=== PATIENT | male | born 1955 | race Caucasian/White ===

== ENCOUNTER → 2019-08-01 | Outpatient (CLI) | payer BC ==
--- NOTE | 2019-08-01 23:57 | MR ---
EXAMINATION TYPE: MR lumbar spine wo con DATE OF EXAM: 08/01/2019 COMPARISON: NONE HISTORY: LBP, LLE radic x 2 yrs. Spondylosis with myelopathy per order. TECHNIQUE: Multiplanar, multisequence imaging of the lumbar spine is performed without IV contrast. FINDINGS: Sagittal images of the lumbar spine show vertebral body heights and alignment to appear sat isfactory. Multilevel disc desiccation is seen is multilevel [id number] disc space narrowing mo st prominent L5-S1 level. The conus medullaris is normal in position and signal ending at mid L1 lev el. Scattered small hemangiomas are present. Mild multilevel anterior spurring is seen. Axial images show the T12-L1, L1-L2, and L2-L3 levels to appear within normal limits. Axial images at the L3-L4 level shows mild broad-based posterior disc protrusion mildly effacing the anterior thecal sac. There is mild bilaterally anterior neural foraminal narrowing. Axial images at the L4-L5 level show mild facet degenerative changes bilaterally. There is right para central disc protrusion minimally effacing the anterior thecal sac. There is mild right greater than left bilateral anterior inferior neural foraminal narrowing. Axial images at the L5-S1 levels with [id number] facet degenerative changes bilaterally. There is central disc protrusion minimally effacing the anterior thecal sac. There is mild to moderate left greater than right bilateral inferior neural foraminal narrowing. No suspicious retroperitoneal findings are seen. IMPRESSION: Multilevel degenerative changes in the mid to lower lumbar spine as detailed above. No si gnificant findings are seen to account for patient's left-sided radiculopathy type symptoms however.
== END | disposition home or self-care (01) ==
LOC: RADMRIMAIN 18:34
PROVIDERS: ATTEND Family Medicine
DX: M47.16 Other spondylosis with myelopathy, lumbar region (principal)
CPT/HCPCS: 72148

== ENCOUNTER 2019-10-07 10:48 | Day surgery (SDC) | payer BC ==
[2019-10-02 12:55] VITALS: BMI 34.7
[~2019-10-07 10:48] MED LIST: LACTATED RINGERS 1,000 ML IV SCH
[2019-10-07 11:07] VITALS: TEMP 97.8
[2019-10-07] MEDS ORDERED: LACTATED RINGERS 1,000 ML IV ONE (11:08)
[2019-10-07] MEDS ORDERED: LIDOCAINE 1% 20 ML VIAL (10MG/ML) FOR IV START INTRADERMA ONE (11:09)
[2019-10-07] MEDS ORDERED: PROPOFOL 10 MG/ML 20 ML VIAL IV ONE (12:23)
[2019-10-07] MEDS ORDERED: LIDOCAINE 1% INJ 10MG/ML (20 ML MDV) ONE (12:23)
[2019-10-07 13:06] VITALS: RESP 16
--- NOTE | 2019-10-07 13:07 | P.PCN ---
Date of Procedure: 10/07/19 Description of Procedure: BRIEF HISTORY: Patient is a 64-year-old pleasant male scheduled for an elective colonoscopy as a part of screening for malignant neoplasm of the colon. Patient reports family history of colon cancer in his father in his 60s. Does report prior colonoscopies, the last was approximately 5 years ago and has had polypectomy in the past. Denies any change in bowel habits, blood per rectum or abdominal pain. PROCEDURE PERFORMED: Colonoscopy with polypectomy. PREOPERATIVE DIAGNOSIS: Screening for malignant neoplasm of the colon, family history of colon cancer, personal history of colon polyps, last colonoscopy 5 years ago. ESTIMATED BLOOD LOSS: Minimal. IV sedation per Anesthesia. PROCEDURE: After informed consent was obtained, the patient, was brought into the endoscopy unit. IV sedation was administered by Anesthesia under continuous monitoring. Digital rectal examination was normal. Initially the Olympus CF-190 flexible video colonoscope was then inserted in the rectum, gradually advanced into the cecum without any difficulty. Careful examination was performed as the scope was gradually being withdrawn. Ileocecal valve and the appendiceal orifice were visualized and appeared normal. Prep was excellent. Mucosa of the cecum, ascending colon, transverse colon, descending colon, sigmoid colon, and rectum appeared normal. Mild scattered diverticula in the left colon. Small 3 mm ascending colon polyp removed with cold forcep polypectomy. Diminutive 1 mm hepatic flexure polyp removed with cold forcep polypectomy. Pedunculated 4 mm sigmoid polyp removed with cold snare polypectomy. Diminutive 2 mm sigmoid polyp removed with cold forcep polypectomy. Diminutive 2 mm rectal polyp removed with cold forcep polypectomy. Retroflexion was performed in the rectum and no lesions were seen. The patient tolerated the procedure well. IMPRESSION: 5 polyps ranging from 1 mm in size to 4 mm in size removed from the colon (please see body of report for location, size and technique of polyp removal). Mild left-sided diverticulosis. RECOMMENDATIONS: Findings of this examination were discussed with the patient endoscopic family. Okay to resume diet. Okay to resume medications. Anticipate repeat colonoscopy in 3 years pending pathology of polypectomies.
[2019-10-07 13:23] VITALS: BP 126/79; PULSE 61
== END 2019-10-07 13:42 | disposition home or self-care (01) ==
LOC: ORWHC2ENDO 10:48
PROVIDERS: ATTEND Internal Medicine
DX: Z12.11 Encounter for screening for malignant neoplasm of colon (principal); D12.2 Benign neoplasm of ascending colon; K63.5 Polyp of colon; D12.5 Benign neoplasm of sigmoid colon; D12.8 Benign neoplasm of rectum; K57.30 Diverticulosis of large intestine without perforation or abscess without bleeding; J45.909 Unspecified asthma, uncomplicated; M19.90 Unspecified osteoarthritis, unspecified site; E66.9 Obesity, unspecified; Z80.0 Family history of malignant neoplasm of digestive organs; Z87.891 Personal history of nicotine dependence; Z79.1 Long term (current) use of non-steroidal anti-inflammatories (NSAID); Z79.899 Other long term (current) drug therapy; Z98.52 Vasectomy status; Z86.010 Personal history of colon polyps; Z79.51 Long term (current) use of inhaled steroids; Z98.890 Other specified postprocedural states; Z68.35 Body mass index [BMI] 35.0-35.9, adult
CPT/HCPCS: 88305; 45380; 45385; J2001; J2704

== ENCOUNTER 2025-01-23 19:24 | Inpatient (IN) | payer BC, MEDICARE ==
[2025-01-23] MEDS ORDERED: NALOXONE 0.4 MG/ML 1 ML VIAL IV PRN (19:38)
--- NOTE | 2025-01-23 19:39 | ED ---
General Adult HPI - General Stated complaint: CVA-Memory loss Time Seen by Provider: 01/23/25 19:26 Source: EMS Mode of arrival: EMS Limitations: no limitations - History of Present Illness Initial comments: Dictation was produced using [employer] dictation software. please excuse any grammatical, word or spelling errors. Chief Complaint: 69-year-old male transferred from outside hospital for neurology consultation History of Present Illness: Patient 69-year-old male he was at outside [facility]. He was evaluated for memory deficits, confusion and bizarre behavior. He patient denies any symptoms currently. He was seen and evaluated there and extensive workup. He was sent here because he had a CT that showed subacute versus chronic infarct. Patient was given aspirin and transferred here. Patient denies any symptoms at this time. According to transfer documentation patient has been having cognitive issues recently. The ROS documented in this emergency department record has been reviewed and confirmed by me. Those systems with pertinent positive or negative responses have been documented in the HPI. All other systems are other negative and/or noncontributory. - Related Data Home Medications Medication Instructions Recorded Confirmed Albuterol Inhaler [Ventolin Hfa 1 - 2 puff INHALATION RT-Q6H PRN 10/02/19 10/02/19 Inhaler] Beclomethasone Dip 80 Mcg/Puff 2 puff INHALATION QAM 10/02/19 10/02/19 [Qvar 80 mcg] Furosemide (Unknown Dose) 1 tab PO DAILY PRN 10/02/19 10/02/19 Naproxen Sodium [Aleve] 220 mg PO BID 10/02/19 10/02/19 Allergies Allergy/AdvReac Type Severity Reaction Status Date / Time No Known Allergies Allergy Verified 10/02/19 12:59 Review of Systems ROS Statement: Those systems with pertinent positive or pertinent negative responses have been documented in the HPI. ROS Other: All systems not noted in ROS Statement are negative. Past Medical History Past Medical History: Asthma, Osteoarthritis (OA) Additional Past Medical History / Comment(s): 3 herniated discs in lower back. History of Any Multi-Drug Resistant Organisms: None Reported Past Surgical History: Back Surgery Additional Past Surgical History / Comment(s): Bilateral cataract surgery, vasectomy. Past Anesthesia/Blood Transfusion Reactions: No Reported Reaction Past Psychological History: No Psychological Hx Reported Past Alcohol Use History: Occasional Past Drug Use History: None Reported - Past Family History Mother Family Medical History: Cancer Additional Family Medical History / Comment(s): Uterine cancer. Father Family Medical History: Cancer Additional Family Medical History / Comment(s): Prostate and colon cancer. General Exam - General Exam Comments Initial Comments: PHYSICAL EXAM: General Impression: Alert and oriented x3, not in acute distress HEENT: Normocephalic atraumatic, extra-ocular movements intact, pupils equal and reactive to light bilaterally, mucous membranes moist. Cardiovascular: Heart regular rate and rhythm Chest: Able to complete full sentences, no retractions, no tachypnea Abdomen: abdomen soft, non-tender, non-distended, no organomegaly Musculoskeletal: Pulses present and equal in all extremities, no peripheral edema Motor: no focal deficits noted Neurological: CN II-XII grossly intact, no focal motor or sensory deficits noted Skin: Intact with no visualized rashes Psych: Normal affect and mood Limitations: no limitations Course Vital Signs 01/23/25 19:27 Temperature 98.1 F Pulse Rate 79 Respiratory 18 Rate Blood Pressure 157/83 O2 Sat by Pulse 94 L Oximetry Medical Decision Making - Medical Decision Making Was pt. sent in by a medical professional or institution (, PA, STOCK PARTS FABRICATOR, urgent care, hospital, or retirement...) When possible be specific @ -Outside ER Did you speak to anyone other than the patient for history (EMS, parent, family, police, friend...)? What history was obtained from this source @ -Dr. Verdin from [facility] Did you review nursing and triage notes (agree or disagree)? Why? @ -I reviewed and agree with nursing and triage notes Were old charts reviewed (outside hosp., previous admission, EMS record, old EKG, old radiological studies, urgent care reports/EKG's, retirement records)? Report findings @ -No old charts were reviewed Differential Diagnosis (chest pain, altered mental status, abdominal pain women, abdominal pain men, vaginal bleeding, musculoskeletal, weakness, fever, dyspnea, syncope, headache, dizziness, GI bleed, back pain, seizure, CVA, palpatations, mental health)? @ - Differential CVA: Ischemic stroke, hemorrhagic stroke, brain tumor, atypical migraine, Wernicke's encephalopathy, seizure, multiple sclerosis, meningitis, encephalitis, hypoglycemia, Guillain-Butt, electrolytes disturbance, myasthenia gravis.... This is not meant to be an all-inclusive list EKG interpreted by me (3pts min.). @ -None done X-rays interpreted by me (1pt min.). @ -None done CT interpreted by me (1pt min.). @ -None done U/S interpreted by me (1pt. min.). @ -None done What testing was considered but not performed or refused? (CT, X-rays, U/S, labs)? Why? @ -None What meds were considered but not given or refused? Why? @ -None Was smoking cessation discussed for >3mins.? @ -No Were there social determinants of health that impacted care today? How? (Homelessness, low income, unemployed, alcoholism, drug addiction, transportation, low edu. Level, literacy, decrease access to med. care, fci, rehab)? @ -No Was there de-escalation of care discussed even if they declined (Discuss DNR or withdrawal of care, Hospice)? DNR status @ -No What co-morbidities impacted this encounter? (DM, HTN, Smoking, COPD, CAD, Cancer, CVA, ARF, Chemo, Hep., AIDS, mental health diagnosis, sleep apnea, morbid obesity)? @ -None Was patient admitted / discharged? Hospital course, mention meds given and route, prescriptions, significant lab abnormalities, going to OR and other pertinent info. @ -69-year-old male transfer of outside hospital for neurology consultation. CT showed subacute versus chronic stroke. Neurologic exam at the bedside is unremarkable. NIH score is 0. Patient had received aspirin. Will be admitted to observation with neurology on consult. Case discussed with hospitalist for admission Did you discuss the management of the patient with other professionals (professionals i.e. , PA, STOCK PARTS FABRICATOR, lab, RT, psych nurse, psych social worker, immigration lawyer, te acher, eeo officer, block and case maker)? Give summary @ -No Was critical care preformed (if so, how long)? @ -No Undiagnosed new problem with uncertain prognosis? @ -No Drug Therapy requiring intensive monitoring for toxicity (Heparin, Nitro, Insulin, Cardizem)? @ -No Were any procedures done? @ -No Diagnosis/symptom? Acute, or Chronic, or Acute on Chronic? Uncomplicated (without systemic symptoms) or Complicated (systemic symptoms)? @ -Abnormal CT Side effects of treatment? @ -No Exacerbation, Progression, or Severe Exacerbation? @ -No Poses a threat to life or bodily function? How? (Chest pain, USA, PR, pneumonia, PE, COPD, DKA, ARF, appy, cholecystitis, CVA, Diverticulitis, Homicidal, Suicidal, threat to staff... and all critical care pts) @ -yes Disposition Clinical Impression: AMS (altered mental status) Disposition: ADMITTED IP TO THIS [facility] Condition: Fair Referrals: Nonstaff,Physician [Primary Care Provider] - 1-2 days Decision Time: 19:38
[2025-01-23] MEDS: SODIUM CHLORIDE 0.9% 1,000 ML IV SCH (20:58)
[2025-01-23] MEDS: GABAPENTIN 300 MG CAP PO SCH (20:59)
--- NOTE | 2025-01-23 22:22 | P.HPIM ---
History of Present Illness H&P Date: 01/23/25 History of present illness; Patient 69-year-old male transfer of [facility] for neurology consu ltation. Patient states that morning he woke up with confusion, he was unable to locate household items and had difficulty finding words. He was well before going to bed the previous evening. He continues to feel some confusion at this time. He had no reported facial droop, slurred speech or upper or lower extremity weakness, dizziness. He continued to have symptoms this morning and proceeded to the hospital. There he received aspirin. He was then transferred here for further consultation. At this time patient reports absence of fever, chills, chest pain, palpitations, diaphoresis, dyspnea, cough, abdominal pain, nausea, vomiting, constipation, diarrhea, weakness, myalgia, dizziness, headache, and dysuria. Spoke with the ER physician, patient admission was accepted by internal medicine service for treatment. REVIEW OF SYSTEMS: Pertinent positives and negatives noted in HPI. PHYSICAL EXAMINATION: Vitals reviewed GENERAL: Resting comfortably in bed. Obese. EYES: PERRL, no scleral injection or icterus. No vision loss HENT: Normocephalic, atraumatic, hearing grossly intact, moist mucous membranes NECK: No tracheal deviation, full range of motion. CARDIOVASCULAR: S1 and S2 present. No murmurs, rubs, or gallops. PULMONARY: Chest is clear to auscultation, no wheezing, rhonchi, or crackles. ABDOMEN: Soft, nontender, nondistended. No palpable organomegaly. MUSCULOSKELETAL: No apparent joint swelling and deformities. EXTREMITIES: No apparent cyanosis, clubbing. No pedal edema. NEUROLOGICAL: Alert and oriented x 3. CN nerves II through XII no noted defic its. 5 out of 5 strength in upper and lower extremities. SKIN: No apparent rashes. ER FINDINGS:Patient transferred from outside facility Labs: Platelets 147, glucose 160 otherwise CBC and CMP unremarkable EKG normal sinus rhythm, rate 84, no ST T depressions or elevations, no T wave abnormalities noted Chest x-ray from outside facility with no acute cardiopulmonary process CT brain left-sided parietal acutesubacute changes Assessment and Plan: In summary, patient 69-year-old male transfer of [facility] for neurology consultation. # Altered mental status possibly due to TIA CT brain left-sided parietal acutesubacute changes HbA1c, Lipid panel ordered - Start Aspirin 81 mg qd, clopedogrel 75 mg qd and lipitor 40 mg qd for 21 days on d/c MRI brain without contrast ordered - Echocardiogram with bubble study ordered - Fall precautions - consult PT and OT for evaluation Neurology consulted #Mild thrombocytopenia Platelets 147 Monitor CBC #Hyperglycemia glucose 160 HbA1c as above Monitor CMP Chronic Medical Conditions #Chronic back pain Resume home medications DVT ppx: Subq Lovenox 40 meq daily Code status: Full code F: IV Normal saline 20 mL/hr E: Replete as needed N: Heart healthy diet A: Ambulatory Anticipated discharge place: Home Anticipated discharge time: 1 to 2 days Dictation was produced using [employer] dictation software. Please excuse any grammatical, word or spelling errors. I have seen and evaluated the patient today. I Discussed the case with the resident and agree with the resident's findings I edited the assessment and plan as necessary as documented in the resident's note. Past Medical History Past Medical History: Asthma, Osteoarthritis (OA) Additional Past Medical History / Comment(s): 3 herniated discs in lower back. History of Any Multi-Drug Resistant Organisms: None Reported Past Surgical History: Back Surgery Additional Past Surgical History / Comment(s): Bilateral cataract surgery, va sectomy. Past Anesthesia/Blood Transfusion Reactions: No Reported Reaction Past Psychological History: No Psychological Hx Reported Past Alcohol Use History: Occasional Past Drug Use History: None Reported - Past Family History Mother Family Medical History: Cancer Additional Family Medical History / Comment(s): Uterine cancer. Father Family Medical History: Cancer Additional Family Medical History / Comment(s): Prostate and colon cancer. Medications and Allergies Home Medications Medication Instructions Recorded Confirmed Type Gabapentin [Neurontin] 100 mg PO BID@0800,1500 01/23/25 01/23/25 History Gabapentin [Neurontin] 300 mg PO HS 01/23/25 01/23/25 History HYDROcodone/APAP 10-325MG [[place] 1 tab PO TID 01/23/25 01/23/25 History 10-325] Sildenafil Citrate [Viagra] 100 mg PO DAILY PRN 01/23/25 01/23/25 History Allergies Allergy/AdvReac Type Severity Reaction Status Date / Time No Known Allergies Allergy Verified 01/23/25 19:41 Physical Exam Vitals: Vital Signs Temp Pulse Resp BP Pulse Ox 01/23/25 19:27 98.1 F 79 18 157/83 94 L Intake and Output 01/23/25 01/23/25 01/23/25 06:59 14:59 22:59 Other: Weight 113.398 kg Results CBC & Chem 7: 01/23/25 22:25 01/23/25 22:25
[2025-01-23] MEDS: ATORVASTATIN 40 MG TAB PO SCH (22:33)
[2025-01-23] MEDS: HYDROcodone/APAP 10-325MG 1 EACH TAB PO SCH (22:34)
[2025-01-23 22:55] LABS: Basophils % (A) 0 %; Eosinophils # (A) 0.1 k/uL (0-0.7); Eosinophils % (A) 1 %; HCT 44.6 % (39.0-53.0); HGB 14.7 gm/dL (13.0-17.5); Lymphocytes # (A) 2.8 k/uL (1.0-4.8); Lymphocytes % (A) 30 %; MCH 30.3 pg (25.0-35.0); MCHC 32.9 g/dL (31.0-37.0); Mean Platelet Volume 9.8; Monocytes # (A) 0.5 k/uL (0-1.0); Monocytes % (A) 6 %; Neutrophils # (A) 5.8 k/uL (1.3-7.7); Neutrophils % (A) 62 %; Platelet Count 147 k/uL (150-450); RBC 4.85 m/uL (4.30-5.90); WBC 9.3 k/uL (3.8-10.6)
[2025-01-23 23:08] LABS: ALT 35 U/L (4-49); AST 26 U/L (17-59); African American GFR (CKD) >90 (>60 ml/min/1.73 sqM); Alkaline Phosphatase 73 U/L (38-126); Anion Gap 10 mmol/L; Blood Urea Nitrogen 15 mg/dL (9-20); Calcium 9.3 mg/dL (8.4-10.2); Carbon Dioxide 24 mmol/L (22-30); Chloride 103 mmol/L (98-107); Glucose 160 mg/dL (74-99); Non-African American GFR(CKD) >90 (>60 ml/min/1.73 sqM); Potassium 4.1 mmol/L (3.5-5.1); Sodium 137 mmol/L (137-145); Total Protein 6.8 g/dL (6.3-8.2)
[2025-01-24 07:47] LABS: Basophils % (A) 0 %; Eosinophils # (A) 0.1 k/uL (0-0.7); Eosinophils % (A) 1 %; HCT 47.4 % (39.0-53.0); HGB 15.1 gm/dL (13.0-17.5); Lymphocytes # (A) 2.6 k/uL (1.0-4.8); Lymphocytes % (A) 30 %; MCHC 31.9 g/dL (31.0-37.0); Mean Platelet Volume 9.6; Monocytes # (A) 0.5 k/uL (0-1.0); Monocytes % (A) 6 %; Neutrophils # (A) 5.3 k/uL (1.3-7.7); Neutrophils % (A) 61 %; Platelet Count 168 k/uL (150-450); RBC 5.04 m/uL (4.30-5.90); RDW 12.7 % (11.5-15.5); WBC 8.7 k/uL (3.8-10.6)
[2025-01-24] MEDS: GABAPENTIN 100 MG CAP PO SCH (07:53)
[2025-01-24 08:01] LABS: Chloride 103 mmol/L (98-107)
[2025-01-24 08:03] LABS: ALT 37 U/L (4-49); AST 29 U/L (17-59); African American GFR (CKD) >90 (>60 ml/min/1.73 sqM); Albumin 4.3 g/dL (3.5-5.0); Alkaline Phosphatase 78 U/L (38-126); Anion Gap 9 mmol/L; Blood Urea Nitrogen 18 mg/dL (9-20); Calcium 9.5 mg/dL (8.4-10.2); Carbon Dioxide 25 mmol/L (22-30); Glucose 151 mg/dL (74-99); Non-African American GFR(CKD) 89 (>60 ml/min/1.73 sqM); Potassium 4.2 mmol/L (3.5-5.1); Sodium 137 mmol/L (137-145); Total Bilirubin 1.2 mg/dL (0.2-1.3); Total Protein 7.2 g/dL (6.3-8.2)
[2025-01-24] MEDS: CLOPIDOGREL 75 MG TAB PO SCH (09:02)
[2025-01-24] MEDS: ENOXAPARIN 40 MG/0.4 ML SYRINGE SQ SCH (09:02)
[2025-01-24] MEDS: ASPIRIN 81 MG PO SCH (09:02)
--- NOTE | 2025-01-24 09:12 | US ---
EXAMINATION TYPE: US carotid duplex BILAT DATE OF EXAM: 01/24/2025 COMPARISON: none CLINICAL INDICATION: Male, 69 years old with history of CVA; memory loss/ confusion Additional History: .... TECHNIQUE: Grayscale, color Doppler and spectral Doppler evaluation of the bilateral carotid systems and vertebral arteries. Indirect Doppler criteria was utilized. FINDINGS: EXAM MEASUREMENTS: RIGHT: Peak Systolic Velocity (PSV) cm/sec ----- Right CCA: 97.4 ----- Right ICA: 87.9 ----- Right ECA: 135 ICA/CCA ratio: 1.1 RIGHT: End Diastole cm/sec ----- Right CCA: 22.5 ----- Right ICA: 29.6 ----- Right ECA: 12.7 LEFT: Peak Systolic Velocity (PSV) cm/sec ----- Left CCA: 77.7 ----- Left ICA: 81.8 ----- Left ECA: 105 ICA/CCA ratio: 0.9 LEFT: End Diastole cm/sec ----- Left CCA: 20.1 ----- Left ICA: 25.8 ----- Left ECA: 9.4 VERTEBRALS (direction of flow): Right Vertebral: Antegrade Left Vertebral: Antegrade Rhythm: Normal HADOOP APPLICATION DEVELOPER NOTES: intima-media thickening bilaterally, no stenosis or elevated velocities Color Doppler imaging shows patency with blood flow throughout the carotid artery. Spectral waveforms are within normal limits. IMPRESSION: 1. Color and grayscale images reveal mild intimal thickening in the carotid bifurcations. 2. No significant stenosis based on color and grayscale imaging and peak systolic velocities and rati os. Criteria for Assigning % of Stenosis / Diameter reduction (Estimation based on the indirect measurements of the internal carotid artery velocities (ICA PSV). 1. Normal (no stenosis)=ICA PSV < 125 cm/s: ratio < 2.0: ICA EDV<40 cm/s. 2. Less than 50% stenosis=ICA PSV < 125 cm/s: ratio < 2.0: ICA EDV<40 cm/s. 3. 50 to 69% stenosis=ICA PSV of 125 to 230 cm/s: ration 2.0 ? 4.0: ICA EDV 40-100 cm/s. 4. Greater than 70% stenosis to near occlusion= ICA PSV > 230 cm/s: ratio > 4.0: ICA EDV > 100 cm/s. 5. Near occlusion= ICA PSV velocities may be low or undetectable: variable ratio and ICA EDV. 6. Total occlusion=unable to detect flow. [facility], Workstation: PJ, 01/24/2025 9:10 AM
--- NOTE | 2025-01-24 12:02 | P.CNNES ---
History of Present Illness Consult date: 01/24/25 Requesting physician: Marcos Ardon Reason for Consult: ams History of Present Illness: This is a 69-year-old gentleman who was transferred from outside facility for escalation of care for concern for possible stroke. Patient is at bedside who helps with some of the history. According to the patient's since this past it seems that he has been confused more than normal. had difficulty describing the episode but patient felt he had some speech difficulty and he knew what he wanted to say but was coming out wrong. The felt he was also confused. He did not have any focal weakness. No visual disturbance, no slurring of the speech, no difficulty swallowing. He denies any history of stroke. He is the third platelet. Patient presented to outside hospital and [facility] in [place], [place]. Patient denies any history of seizures. He states he just has chronic low back pain and he is on gabapentin and Sutton's other than that he is not on any other medication. Denies any alcohol use, any illicit drug use. Regarding his memory issues in the past thinks maybe in the last 1 year is repeating himself but he believes places things. Patient states he misplaces things because he does not care about them. Patient has intact remote memory and memory of his names of his kids as well as grandkids. No difficulty feeding or bathing himself. Feels he is drastically better today compared to couple days ago. CT of the head and there is concern for for possible stroke. stated that they could not do MRI at the outside hospital so they wanted him to come to our facility for further evaluation Upon reviewing the outside hospital medical record: It seems that he presented to the outside hospital on 01/21/2025 and in that note stated that the patient woke up with increased memory loss and could not remember how to do things like make coffee he could not find his phone even though was right in front of him who does state memory problems at baseline. At the outside facility his NIH stroke scale was 0. CT of the head showed age- indeterminate infarct in the left parietal lobe, subacute to chronic. Review of Systems As per HPI. Past Medical History Past Medical History: Asthma, Osteoarthritis (OA) Additional Past Medical History / Comment(s): 3 herniated discs in lower back. History of Any Multi-Drug Resistant Organisms: None Reported Past Surgical History: Back Surgery Additional Past Surgical History / Comment(s): Bilateral cataract surgery, vasectomy. Past Anesthesia/Blood Transfusion Reactions: No Reported Reaction Past Psychological History: No Psychological Hx Reported Past Alcohol Use History: Occasional Past Drug Use History: None Reported - Past Family History Mother Family Medical History: Cancer Additional Family Medical History / Comment(s): Uterine cancer. Father Family Medical History: Cancer Additional Family Medical History / Comment(s): Prostate and colon cancer. Medications and Allergies Home Medications Medication Instructions Recorded Confirmed Type Gabapentin [Neurontin] 100 mg PO BID@0800,1500 01/23/25 01/23/25 History Gabapentin [Neurontin] 300 mg PO HS 01/23/25 01/23/25 History HYDROcodone/APAP 10-325MG [Sutton 1 tab PO TID 01/23/25 01/23/25 History 10-325] Sildenafil Citrate [Viagra] 100 mg PO DAILY PRN 01/23/25 01/23/25 History Allergies Allergy/AdvReac Type Severity Reaction Status Date / Time No Known Allergies Allergy Verified 01/23/25 19:41 Physical Examination - Vital Signs Vital Signs: Vital Signs Temp Pulse Resp BP Pulse Ox 01/24/25 07:48 97.5 F L 70 18 137/67 94 L 01/24/25 06:27 75 16 117/61 93 L 01/24/25 04:38 64 18 113/61 94 L 01/24/25 00:19 80 18 124/62 93 L 01/23/25 19:27 98.1 F 79 18 157/83 94 L Intake and Output 01/23/25 01/24/25 01/24/25 22:59 06:59 14:59 Other: Weight 113.398 kg GENERAL: The patient is lying in bed and is not in acute distress. NEUROLOGICAL: Higher mental function: The patient is awake, alert, oriented to self, place and time. Patient is following commands. No aphasia and no neglect. Cranial nerves: The pupils are round, equal and reactive to light and accommodation. Visual velez are full to confrontation throughout. Extraocular movement is intact no nystagmus is noted. Facial sensation is normal to touch throughout. The facial strength is left nasolabialt flattening (per is chronic). Hearing is mildly decreased bilaterally to hand rub. Tongue is midline and moved [id number] without any difficulty. No dysarthria is noted. Shoulder shrug is normal bilaterally. Motor: The strength is 5 over 5 throughout. Normal tone and bulk. Cerebellum: Normal finger to nose heel to garcia bilaterally. Sensation: Sensation is normal to touch throughout. Reflexes (right/left): 2+ throughout. Plantars are downgoing bilaterally. Results - Laboratory Findings CBC and BMP: 01/24/25 07:16 01/24/25 07:16 Abnormal Lab Findings: Abnormal Labs 01/23/25 01/23/25 01/24/25 22:25 22:25 07:16 Plt Count 147 L Glucose 160 H 151 H Assessment and Plan Assessment: This is a 69-year-old gentleman who was transferred from outside hospital because of altered mental status, confusion, word finding difficulty and a CT of the head showed age-indeterminate infarct in the left parietal lobe, subacute to chronic and requesting escalation of care. Transient expressive aphasia with confusion: Rule out any subacute ischemic stro ke or TIA. CT of the head at the outside hospital showed indeterminate infarct over the left parietal subacute chronic--this is resolved. No IV thrombolytic since symptoms resolve and the risk outweigh the benefit Underlying history of memory loss per the for over the last 1 year and it seems mild Chronic low back pain Remote history of tobacco use Plan: MRI the brain and 2D echo are ordered and pending. Patient was started on aspirin 81 mg, Plavix 75 mg the primary team. Prior to this the patient was not on any antiplatelet. Patient is on Lipitor 40 mg nigh tly. L Ordered TSH. ipid panel, hemoglobin A1c are ordered by the primary team and pending. PT OT are consulted Continue neurochecks Cardiac monitoring Will defer the rest of the medical management to primary team Demented neuropsych evaluation as an outpatient for detailed memory testing as an outpatient. For DVT prophylaxis patient is on Lovenox The plan discussed with the patient and his is at bedside Thank you for the consultation Time with Patient: Greater than 30
--- NOTE | 2025-01-24 12:26 | P.PN ---
Subjective Progress Note Date: 01/24/25 Patient 69-year-old male transfer of [facility] for neurology consultation. Patient states that morning he woke up with confusion, he was unable to locate household items and had difficulty finding words. He was well before going to bed the previous evening. He continues to feel some confusion at this time. He had no reported facial droop, slurred speech or upper or lower extremity weakness, dizziness. He continued to have symptoms this morning and proceeded to the hospital. There he received aspirin. He was then transferred here for further consultation. At this time patient reports absence of fever, chills, chest pain, palpitations, diaphoresis, dyspnea, cough, abdominal pain, nausea, vomiting, constipation, diarrhea, weakness, myalgia, dizziness, headache, and dysuria. 01/24/2025 patient seen and examined at bedside. No acute events overnight. Labs today showed WBC 8.7, hemoglobin 15.1, platelet count 1 68,000, sodium 137, potassium 4.2, bicarb 25, creatinine 0.89, glucose 151, calcium 9.5, total bilirubin 1.2, AST 29, ALT 37, alk phos 78. Carotid Doppler study showed mild intimal thickening in the carotid bifurcations, no significant stenosis seen. REVIEW OF SYSTEMS: Pertinent positives and negatives noted in HPI. PHYSICAL EXAMINATION: Vitals reviewed GENERAL: Resting comfortably in bed. Obese. EYES: PERRL, no scleral injection or icterus. No vision loss HENT: Normocephalic, atraumatic, hearing grossly intact, moist mucous membranes NECK: No tracheal deviation, full range of motion. CARDIOVASCULAR: S1 and S2 present. No murmurs, rubs, or gallops. PULMONARY: Chest is clear to auscultation, no wheezing, rhonchi, or crackles. ABDOMEN: Soft, nontender, nondistended. No palpable organomegaly. MUSCULOSKELETAL: No apparent joint swelling and deformities. EXTREMITIES: No apparent cyanosis, clubbing. No pedal edema. NEUROLOGICAL: Alert and oriented x 3. CN nerves II through XII no noted deficits. 5 out of 5 strength in upper and lower extremities. SKIN: No apparent rashes. ER FINDINGS:Patient transferred from outside facility Labs: Platelets 147, glucose 160 otherwise CBC and CMP unremarkable EKG normal sinus rhythm, rate 84, no ST T depressions or elevations, no T wave abnormalities noted Chest x-ray from outside facility with no acute cardiopulmonary process CT brain left-sided parietal acutesubacute changes Assessment and Plan: In summary, patient 69-year-old male transfer of [facility] for neurology consultation. #. Acute encephalopathy possibly due to TIA CT brain left-sided parietal acutesubacute changes -Carotid Doppler study showed mild intimal thickening in the carotid bifurcations, no significant stenosis seen. -Start Aspirin 81 mg qd, clopedogrel 75 mg qd and lipitor 40 mg qd for 21 days on d/c MRI brain without contrast ordered - Echocardiogram with bubble study ordered HbA1c, Lipid panel ordered -Neurochecks -Fall precautions - consult PT and OT for evaluation Neurology consulted. TSH ordered and pending #. Thrombocytopenia, resolved Platelets 147 -> 168 #. Hyperglycemia glucose 160 -> 151 HbA1c as above Monitor CMP Chronic Medical Conditions #Chronic back pain Resume home [place] and gabapentin DVT ppx: Subq Lovenox 40 meq daily Code status: Full code F: IV Normal saline 20 mL/hr E: Replete as needed N: Heart healthy diet A: Ambulatory I saw and evaluated the patient during the roman and critical portions of this encounter, and discussed the case in detail with the resident author of this note, I agree with the Assessment and Plan, and my changes, if any, are highlighted in blue. Objective - Vital Signs Vital signs: Vital Signs Temp 98.1 F 01/23/25 19:27 Pulse 75 01/24/25 06:27 Resp 16 01/24/25 06:27 BP 117/61 01/24/25 06:27 Pulse Ox 93 L 01/24/25 06:27 FiO2 Intake & Output 01/23/25 01/24/25 01/24/25 18:59 06:59 18:59 Weight 113.398 kg - Labs CBC & Chem 7: 01/24/25 07:16 01/24/25 07:16 Labs: Abnormal Lab Results - Last 24 Hours (Table) 01/23/25 01/23/25 Range/Units 22:25 22:25 Plt Count 147 L (150-450) k/uL Glucose 160 H (74-99) mg/dL
[2025-01-24 13:35] LABS: Chol/HDL Ratio 3.81 Ratio; LDL Cholesterol,Calculated 129.2 mg/dL (0.0-131.0)
[2025-01-24] MEDS: GABAPENTIN 300 MG CAP PO SCH (22:02)
--- NOTE | 2025-01-25 12:47 | P.PN ---
Subjective Progress Note Date: 01/25/25 No new complaints today. Seen ambulating in the hallway with good gait and no issues. Per pt confusion is improving. Gen: In NAD, non-toxic HEENT: normocephalic, atraumatic, hearing acuity is intant, mucous membranes moist CVS: perfusing all extremities well, no pitting edema, Respiratory: symmetric chest expansion, no accessory muscle use, GI: soft, NTTP, ND, : no suprapubic tenderness, no CVA tenderness MSK/Derm: no rashes, cyanosis Neuro: CN II-XII intact, no motor weakness, Psych: cooperative, euthymic mood, judgment and insight is intact Hospital course: Patient 69-year-old male transfer of [facility] for neurology consultation. ER FINDINGS:Patient transferred from outside facility Labs: Platelets 147, glucose 160 otherwise CBC and CMP unremarkable EKG normal sinus rhythm, rate 84, no ST T depressions or elevations, no T wave abnormalities noted Chest x-ray from outside facility with no acute cardiopulmonary process CT brain left-sided parietal acutesubacute changes Patient was admitted for stroke workup. Carotid Doppler study showed mild intimal thickening in the carotid bifurcations, no significant stenosis seen. Assessment and Plan: In summary, patient 69-year-old male transfer of [facility] for neurology consultation. #. Acute encephalopathy possibly due to TIA - Continue aspirin 81 mg qd, clopidogrel 75 mg qd for 21 days on DC; lipitor 40 mg qd MRI brain without contrast ordered - Echocardiogram with bubble study ordered HbA1c, Lipid panel ordered - Neurochecks - Fall precautions - consult PT and OT for evaluation Neurology consulted. TSH ordered and pending #. Thrombocytopenia, resolved Platelets 147 -> 168 #. Hyperglycemia glucose 160 -> 151 HbA1c as above Monitor CMP Chronic Medical Conditions #Chronic back pain Resume home [place] and gabapentin DVT ppx: Subq Lovenox 40 meq daily Code status: Full code F: IV Normal saline 20 mL/hr E: Replete as needed N: Heart healthy diet A: Ambulatory Objective - Vital Signs Vital signs: Vital Signs Temp 97.3 F L 01/25/25 08:35 Pulse 76 01/25/25 08:35 Resp 18 01/25/25 08:35 BP 133/70 01/25/25 08:35 Pulse Ox 96 01/25/25 08:35 FiO2 - Labs CBC & Chem 7: 01/24/25 07:16 01/24/25 07:16 Labs: Abnormal Lab Results - Last 24 Hours (Table) 01/24/25 01/24/25 Range/Units 07:16 07:16 Hemoglobin A1c 6.8 H (<=6.0) % Cholesterol 209.00 H (0.00-200.00) mg/dL
--- NOTE | 2025-01-25 13:58 | P.PN ---
Subjective Progress Note Date: 01/25/25 I am following up with the patient and he is accompanied with his daughter feels his speech memory is better today compared to yesterday. No new neurological issues. Objective - Vital Signs Vital signs: Vital Signs Temp 97.3 F L 01/25/25 08:35 Pulse 91 01/25/25 12:54 Resp 18 01/25/25 12:54 BP 143/67 01/25/25 12:54 Pulse Ox 95 01/25/25 12:54 FiO2 - Exam GENERAL: The patient is lying in bed and is not in acute distress. NEUROLOGICAL: Higher mental function: The patient is awake, alert, oriented to self, place and time. Patient is following commands. No aphasia and no neglect. Cranial nerves: The pupils are round, equal and reactive to light and accommodation. Visual velez are full to confrontation throughout. Extraocular movement is intact no nystagmus is noted. Facial sensation is normal to touch throughout. The facial strength is left nasolabialt flattening (per is chronic). Hearing is mildly decreased bilaterally to hand rub. Tongue is midline and moved [id number] without any difficulty. No dysarthria is noted. Shoulder shrug is normal bilaterally. Motor: The strength is 5 over 5 throughout. Normal tone and bulk. Cerebellum: Normal finger to nose heel to garcia bilaterally. Sensation: Sensation is normal to touch throughout. Reflexes (right/left): 2+ throughout. Plantars are downgoing bilaterally. Some of the workup during this hospital visit consisted of: Lipid panel is triglyceride 125, cholesterol 209, LDL is 129 and HDL is 54 TSH is 2.470 Carotid duplex is reported as no significant stenosis based on the color and grayscale imaging and peak systolic velocity and ratio. Color and grayscale images revealed mild intimal thickening in the carotid bifurcation - Labs CBC & Chem 7: 01/24/25 07:16 01/24/25 07:16 Labs: Abnormal Lab Results - Last 24 Hours (Table) 01/24/25 01/24/25 Range/Units 07:16 07:16 Hemoglobin A1c 6.8 H (<=6.0) % Cholesterol 209.00 H (0.00-200.00) mg/dL Assessment and Plan Assessment: This is a 69-year-old gentleman who was transferred from outside hospital [facility] of altered mental status, confusion, word finding difficulty and a CT of the head showed age-indeterminate infarct in the left parietal lobe, subacute to chronic and requesting escalation of care. Transient expressive aphasia with confusion: Rule out any subacute ischemic stroke or TIA. CT of the head at the outside hospital showed indeterminate infarct over the left parietal subacute chronic--this is resolved. No IV thrombolytic since symptoms resolve and the risk outweigh the benefit Newly Diabetes mellitus 6.8 of hemoglobin A1c Underlying history of memory loss per the for over the last 1 year and it seems mild Chronic low back pain Remote history of tobacco use Plan: MRI the brain and 2D echo pending. Patient was started on aspirin 81 mg, Plavix 75 mg the primary team. Prior to this the patient was not on any antiplatelet. Patient is on Lipitor 40 mg nightly. L PT OT are consulted Continue neurochecks Cardiac monitoring Will defer the rest of the medical management to primary team Demented neuropsych evaluation as an outpatient for detailed memory testing as an outpatient. For DVT prophylaxis patient is on Lovenox The plan discussed with the patient and his daughter who is at bedside Time with Patient: Less than 30
[2025-01-26 05:25] LABS: Basophils # (A) 0.1 k/uL (0-0.2); Basophils % (A) 1 %; Eosinophils # (A) 0.2 k/uL (0-0.7); Eosinophils % (A) 2 %; HCT 43.2 % (39.0-53.0); HGB 13.7 gm/dL (13.0-17.5); Lymphocytes # (A) 2.4 k/uL (1.0-4.8); Lymphocytes % (A) 31 %; MCHC 31.7 g/dL (31.0-37.0); MCV 94.8 fL (80.0-100.0); Mean Platelet Volume 9.9; Monocytes # (A) 0.6 k/uL (0-1.0); Monocytes % (A) 8 %; Neutrophils # (A) 4.5 k/uL (1.3-7.7); Neutrophils % (A) 57 %; Platelet Count 146 k/uL (150-450); RBC 4.56 m/uL (4.30-5.90); RDW 12.7 % (11.5-15.5); WBC 7.9 k/uL (3.8-10.6)
[2025-01-26 05:45] LABS: African American GFR (CKD) 89 (>60 ml/min/1.73 sqM); Anion Gap 7 mmol/L; Blood Urea Nitrogen 27 mg/dL (9-20); Calcium 8.7 mg/dL (8.4-10.2); Carbon Dioxide 27 mmol/L (22-30); Chloride 105 mmol/L (98-107); Glucose 144 mg/dL (74-99); Magnesium 2.1 mg/dL (1.6-2.3); Non-African American GFR(CKD) 77 (>60 ml/min/1.73 sqM); Sodium 139 mmol/L (137-145)
--- NOTE | 2025-01-26 10:48 | MR ---
EXAMINATION TYPE: MR brain wo con DATE OF EXAM: 01/26/2025 COMPARISON: NONE HISTORY: Memory loss, confusion, CVA. TECHNIQUE: Multiplanar, multisequence imaging of the brain and brainstem is performed without IV cont rast. FINDINGS: Diffusion weighted images demonstrate area of increased signal on diffusion-weighted images correspon ding to area of diminished signal on ADC mapping showing T2 hyperintensity and sulcal effacement bee g with blooming artifact on SWI imaging consistent with evolving acute hemorrhagic infarct in the pos terior watershed region left parietal lobe measuring approximately 3.5 x 3.4 x 3.5 cm. There is mild to moderate ventricular and sulcal prominence. There are moderate multifocal areas of T 2 hyperintensity throughout the white matter bilaterally. Lesions are nonspecific in appearance and d istribution. Old infarct inferior left cerebellum is seen. Midline structures demonstrate normal morphology. The craniocervical junction appears within normal limits. Normal vascular flow voids are present. The visualized sinuses are clear. Bilateral aphakia is present. IMPRESSION: 1. There is evolving acute hemorrhagic infarct left parietal lobe posterior watershed region as detai led above. 2. There is background [id number] diffuse cerebral atrophy and moderate to borderline advanced chronic small vessel ischemic change along with old inferior left cerebellar infarct are all redemons trated. Findings of acute infarct called to patient's nurse on telephone by myself at time of dictation. [facility], , 01/26/2025 10:46 AM
[2025-01-26] MEDS ORDERED: DEXTROSE 50% SYRINGE 50 ML IVP PRN ×2 (10:56)
--- NOTE | 2025-01-26 11:03 | P.PN ---
Subjective Progress Note Date: 01/26/25 Hospital course: Patient 69-year-old male transfer of [facility] for neurology consultation. ER FINDINGS:Patient transferred from outside facility Labs: Platelets 147, glucose 160 otherwise CBC and CMP unremarkable EKG normal sinus rhythm, rate 84, no ST T depressions or elevations, no T wave abnormalities noted Chest x-ray from outside facility with no acute cardiopulmonary process CT brain left-sided parietal acutesubacute changes 01/24/2025 patient seen and examined at bedside. No acute events overnight. Labs today showed WBC 8.7, hemoglobin 15.1, platelet count 1 68,000, sodium 137, potassium 4.2, bicarb 25, creatinine 0.89, glucose 151, calcium 9.5, total bilirubin 1.2, AST 29, ALT 37, alk phos 78. Carotid Doppler study showed mild intimal thickening in the carotid bifurcations, no significant stenosis seen. 01/25/2025 No new complaints today. Seen ambulating in the hallway with good gait and no issues. Per pt confusion is improving. 01/26/2025 no new complaints today. No acute events overnight. Was able to ambulate on their own today. Labs today showed WBC 7.9, hemoglobin 13.7, platelet count 1 46,000, glucose 144, magnesium 2.1 REVIEW OF SYSTEMS: Pertinent positives and negatives noted in HPI. Vitals reviewed GENERAL: Resting comfortably in bed. Obese. EYES: PERRL, no scleral injection or icterus. No vision loss HENT: Normocephalic, atraumatic, hearing grossly intact, moist mucous membranes NECK: No tracheal deviation, full range of motion. CARDIOVASCULAR: S1 and S2 present. No murmurs, rubs, or gallops. PULMONARY: Chest is clear to auscultation, no wheezing, rhonchi, or crackles. ABDOMEN: Soft, nontender, nondistended. No palpable organomegaly. MUSCULOSKELETAL: No apparent joint swelling and deformities. EXTREMITIES: No apparent cyanosis, clubbing. No pedal edema. NEUROLOGICAL: Alert and oriented x 3. CN nerves II through XII no noted deficits. 5 out of 5 strength in upper and lower extremities. SKIN: No apparent rashes. Assessment and Plan: In summary, patient 69-year-old male transfer of [facility] for neurology consultation. #. Acute encephalopathy and Aphasia, secondary to hemorrhagic CVA lipitor 40 mg qd -Aspirin, Plavix, enoxaparin have been discontinued MRI brain without contrast ordered, results reviewed, hemorrhagic stroke in t he left parietal region, case discussed with neurology who will evaluate the patient for further recommendations - Echocardiogram with bubble study ordered - Neurochecks - Fall precautions - consult ST, PT and OT for evaluation Neurology consulted. Recommended evaluation for dementia on outpatient basis -TSH normal HbA1c 6.8 -Lipid panel showed cholesterol 209, normal LDL, HDL and VLDL #. Type II Diabetes HbA1c as above -Insulin sliding scale ACHS -Glucose Accu-Cheks ACHS Monitor glucose -Adjust oral antihyperglycemic on discharge #. Hypercholesterolemia -Lipid panel as above -On Lipitor 40 mg daily -Follow-up on outpatient basis #. Thrombocytopenia, resolved Chronic Medical Conditions #. Chronic back pain Resume home [place] and gabapentin DVT ppx: Subq Lovenox 40 meq daily Code status: Full code F: IV Normal saline 20 mL/hr E: Replete as needed N: Heart healthy diet A: Ambulatory Objective - Vital Signs Vital signs: Vital Signs Temp 98.2 F 01/26/25 08:00 Pulse 80 01/26/25 08:00 Resp 16 01/26/25 08:00 BP 145/80 01/26/25 08:00 Pulse Ox 93 L 01/26/25 08:00 FiO2 Intake & Output 01/25/25 01/26/25 01/26/25 18:59 06:59 18:59 Intake Total 240 128 Balance 240 128 Weight 113.398 kg 101.5 kg Intake: IV 10 Invasive Line 1 10 Oral 240 118 Other: Voiding Method Toilet # Voids 1 - Labs CBC & Chem 7: 01/26/25 04:45 01/26/25 04:45 Labs: Abnormal Lab Results - Last 24 Hours (Table) 01/26/25 01/26/25 Range/Units 04:45 04:45 Plt Count 146 L (150-450) k/uL BUN 27 H (9-20) mg/dL Glucose 144 H (74-99) mg/dL
[2025-01-26 11:45] LABS: Glucose,Whole Blood 126 mg/dL (70-110)
[2025-01-26] MEDS: INSULIN LISPRO (HumaLOG) 100 UNIT/ML 10 mL VL SQ SCH (11:53)
--- NOTE | 2025-01-26 12:50 | CT ---
EXAMINATION TYPE: CT brain wo con DATE OF EXAM: 01/26/2025 12:40 PM COMPARISON: MRI. CLINICAL INDICATION: Male, 69 years old with history of brain bleed on mri, POSSIBLE BLEED TECHNIQUE: Brain: Axial CT images of the brain were obtained with coronal and sagittal reformats created and rev iewed. Contrast used: None. Oral contrast used: None. CT DLP: 1087 mGycm, Automated exposure control for dose reduction was used. FINDINGS: Brain: Extra-axial spaces: Possible high density curvilinear blood products in the sulci in the area of infa rct versus prominent vessels. Ventricular system: Within normal limits Cerebral parenchyma: Suspected remote injury left parietal region. No acute intraparenchymal hemorrha ge or mass effect. The sandoval-white junction is well differentiated. Cerebellum: Prior injury to the left inferior cerebellar hemisphere as seen on MRI Mass effect: No evidence of midline shift. Intracranial vasculature: Atherosclerotic calcifications of the intracranial vessels. Soft tissues: Normal. Calvarium/osseous structures: No depressed skull fracture. Paranasal sinuses and mastoid air cells: Mild scattered paranasal sinus disease. Visualized orbits: Bilaterally aphakia. IMPRESSION: 1. Left parietal lobe infarct as seen on MRI with possible subarachnoid hemorrhage in the sulci vers us cortical laminar necrosis. There is petechial hemorrhage noted on MRI. No intraparenchymal hemorrh age identified Parenchymal hemorrhage. 2. Remote left inferior cerebellar hemisphere injury. [facility], , 01/26/2025 12:48 PM
--- NOTE | 2025-01-26 12:59 | CT ---
EXAMINATION TYPE: CT angio head neck DATE OF EXAM: 01/26/2025 12:48 PM COMPARISON: MRI/CT. CLINICAL INDICATION: Male, 69 years old with history of cva r/o aneurysm or malformation; PHH, POSSIB LE BLEED TECHNIQUE: Axially acquired helical CT angiogram of the head and neck was obtained with contrast. Axi al images are supplemented with 3D reconstructions and MIP images which were post-processed at an in dependent workstation. NASCET criteria used. Contrast used:65 ml mL of Isovue 370 with IV Contrast, Oral contrast used: None. CT DLP: 619.7 mGycm, Automated exposure control for dose reduction was used. FINDINGS: CTA HEAD: No evidence of acute intracranial hemorrhage, mass effect, or midline shift. The ventricles, sulci, a nd cisterns are unremarkable. Bilateral aphakia. Left MCA territory infarct as seen on prior MRI. Vertebral arteries: The vertebral arteries are patent. Vertebral artery dominance: Codominant Basilar artery: The basilar artery is intact. The basilar artery bifurcation is normal. Internal Carotid arteries: The cervical, petrous, cavernous and supraclinoid segments are normal. CAROL: Azygos anterior cerebral artery. Patent with no evidence of aneurysm. ACOM: Present without evidence of aneurysm. MCA: Patent with no evidence of aneurysm. RN RESIDENTIAL: Patent with no evidence of aneurysm. PCOM: Hypoplastic bilaterally. Dural sinuses: Patent. CTA NECK: Right Carotid System: The common carotid and external carotid arteries are patent. There is less than 25% stenosis at the c arotid bifurcation secondary to calcified/noncalcified plaque. The rest of the internal carotid arter y is patent. Left Carotid System: The common carotid and external carotid arteries are patent. There is less than 25% stenosis at the c arotid bifurcation secondary to calcified/noncalcified plaque. The rest of the internal carotid arter y is patent. Vertebral arteries are patent without evidence hemodynamically significant stenosis. There is a three-vessel aortic arch. The origins of the great vessels are patent. No evidence of hemo dynamically significant stenosis. Upper thorax: Moderate centrilobular emphysema changes. IMPRESSION: 1. No evidence of dissection of the cervical internal carotid arteries or vertebral arteries. 2. No any evidence of significant stenosis at the carotid bifurcations. 3. No evidence of intracranial high-grade stenosis or intracranial aneurysm. 4. Azygos anterior cerebral artery. 5. Moderate emphysema. 6. Left parietal infarct as seen on prior MRI. [facility], , 01/26/2025 12:57 PM
--- NOTE | 2025-01-26 13:57 | P.PN ---
Subjective Progress Note Date: 01/26/25 I am following-up with patient and he feels he is doing drastically better. Denies of any headache, focal weakness, numbness, visual disturbace. His who is at bedside states he was not good with numbers in past that is chronic and she feels he is doing better. He had MRI Brain and there is concern for stroke with hemorrhagic conversion. It seems he had old injury to head that is remote and was hit on head by trees on back of brain. Objective - Vital Signs Vital signs: Vital Signs Temp 98.2 F 01/26/25 08:00 Pulse 64 01/26/25 11:13 Resp 16 01/26/25 11:13 BP 127/81 01/26/25 11:13 Pulse Ox 96 01/26/25 11:13 FiO2 Intake & Output 01/25/25 01/26/25 01/26/25 18:59 06:59 18:59 Intake Total 240 128 Balance 240 128 Weight 113.398 kg 101.5 kg Intake: IV 10 Invasive Line 1 10 Oral 240 118 Other: Voiding Method Toilet # Voids 1 - Exam GENERAL: The patient is lying in bed and is not in acute distress. NEUROLOGICAL: Higher mental function: The patient is awake, alert, oriented to self, place and time. Patient is following commands. No aphasia and no neglect. Cranial nerves: The pupils are round, equal and reactive to light and accommodation. Visual velez are full to confrontation throughout. Extraocular movement is intact no nystagmus is noted. Facial sensation is normal to touch throughout. The facial strength is left nasolabialt flattening (per is chronic). Hearing is mildly decreased bilaterally to hand rub. Tongue is midline and moved [id number] without any difficulty. No dysarthria is noted. Shoulder shrug is normal bilaterally. Motor: The strength is 5 over 5 throughout. Normal tone and bulk. Cerebellum: Normal finger to nose heel to garcia bilaterally. Sensation: Sensation is normal to touch throughout. Reflexes (right/left): 2+ throughout. Plantars are downgoing bilaterally. Some of the workup during this hospital visit consisted of: Lipid panel is triglyceride 125, cholesterol 209, LDL is 129 and HDL is 54 TSH is 2.470 Carotid duplex is reported as no significant stenosis based on the color and grayscale imaging and peak systolic velocity and ratio. Color and grayscale images revealed mild intimal thickening in the carotid bifurcation MRI Brain: There is evolving acute hemorrhagic infarct left parietal lobe posterior watershed region. Has old inferior left cerebellar infarct - Labs CBC & Chem 7: 01/26/25 04:45 01/26/25 04:45 Labs: Abnormal Lab Results - Last 24 Hours (Table) 01/26/25 01/26/25 01/26/25 Range/Units 04:45 04:45 11:43 Plt Count 146 L (150-450) k/uL BUN 27 H (9-20) mg/dL Glucose 144 H (74-99) mg/dL POC Glucose (mg/dL) 126 H (70-110) mg/dL Assessment and Plan Assessment: This is a 69-year-old gentleman who was transferred from outside hospital because of altered mental status, confusion, word finding difficulty and a CT of the head showed age-indeterminate infarct in the left parietal lobe, subacute to chronic and requesting escalation of care. CT of the head at the outside hospital showed indeterminate infarct over the left parietal subacute chronic--this is resolved. Acute to subactue (more subacute) ischemic stroke over the left parietal with hemorrhagic transformation on today's MRI. Had transient expressive aphasia with confusion. Currently has no focal deficits. Newly Diabetes mellitus 6.8 of hemoglobin A1c Underlying history of memory loss per the for over the last 1 year and it seems mild Chronic low back pain Remote history of tobacco use Plan: I spoke with Dr. Shah, reading radiologist and he does agree there is recent stroke over the left parietal with hemorrhagic transformation. 2D echo pending. Patient was started on aspirin 81 mg, Plavix 75 mg the primary team and spoke with primary team to stop since had bleed on MRI and risk outweigh the risk. Prior to this the patient was not on any antiplatelet. Patient is on Lipitor 40 mg nightly. I ordered a STAT CT head to assess for bleed better. Ordered CTA head and neck. Will avoid any reversal for bleed since clinically is better and will wait for CT head. No need for transfer for neurosurgery evaluation since clinically doing well. PT OT are consulted Continue neurochecks Cardiac monitoring Will defer the rest of the medical management to primary team Demented neuropsych evaluation as an outpatient for detailed memory testing as an outpatient. For DVT prophylaxis patient is on Lovenox and spoke with primary team to stop it. The plan discussed with the patient and his who is at bedside. Also discussed with primary team and his nurse. Total spend on care is 45minutes. Time with Patient: Greater than 30
[2025-01-26 17:00] LABS: Glucose,Whole Blood 152 mg/dL (70-110)
--- NOTE | 2025-01-26 17:02 | CA ---
Transthoracic Echo Report Name: Pankaj Richardson Age: 69 Gender: M : 1955 Exam Date: 01/26/2025 14:24 Exam Location: [place] [facility] Ht (in): 66 Wt (lb): 250 Ordering Physician: Karri Benites MD Attending/Referring Phys: Dye Stand Loader Rubina Gallagher RDCS Procedure CPT: Indications: CVA Cardiac Hx: Technical Quality: Fair Contrast 1: Total Dose (mL): Contrast 2: Total Dose (mL): MEASUREMENTS (Male / Female) Normal Values 2D ECHO LV Diastolic Diameter PLAX 5.3 cm 4.2 - 5.9 / 3.9 - 5.3 cm LV Systolic Diameter PLAX 4.3 cm IVS Diastolic Thickness 1.1 cm 0.6 - 1.0 / 0.6 - 0.9 cm LVPW Diastolic Thickness 0.9 cm 0.6 - 1.0 / 0.6 - 0.9 cm LV Relative Wall Thickness 0.4 LVOT Diameter 2.6 cm LV Diastolic Volume MOD BP 126.5 cm??? 67 - 155 / 56 - 104 cm??? LV Systolic Volume MOD BP 51.2 cm??? 22 - 58 / 19 - 49 cm??? LV Ejection Fraction MOD BP 59.5 % >= 55 % LV Cardiac Index MOD BP 2495.3 cm???/min???m??? LV Diastolic Volume MOD 4C 118.1 cm??? LV Systolic Volume MOD 4C 50.6 cm??? LV Ejection Fraction MOD 4C 57.2 % LV Cardiac Index MOD 4C 2239.1 cm???/min???m??? LV Diastolic Length 4C 9.1 cm LV Systolic Length 4C 7.5 cm LV Diastolic Volume MOD 2C 135.4 cm??? LV Systolic Volume MOD 2C 49.9 cm??? LV Ejection Fraction MOD 2C 63.1 % LV Cardiac Index MOD 2C 2831.0 cm???/min???m??? LV Diastolic Length 2C 9.1 cm LV Systolic Length 2C 7.8 cm LA Volume 57.8 cm??? 18 - 58 / 22 - 52 cm??? LA Volume Index 24.6 cm???/m??? 16 - 28 cm???/m??? DOPPLER AV Peak Velocity 154.2 cm/s AV Peak Gradient 9.5 mmHg AV Mean Velocity 102.5 cm/s AV Mean Gradient 4.8 mmHg AV Velocity Time Integral 31.8 cm LVOT Peak Velocity 102.3 cm/s LVOT Peak Gradient 4.2 mmHg LVOT Velocity Time Integral 22.0 cm LVOT Stroke Volume 113.7 cm??? LVOT Stroke Volume Index 51.7 ml/m??? LVOT Cardiac Index 3769.0 cm???/min???m??? AV Area Cont Eq vti 3.6 cm??? AV Area Cont Eq pk 3.4 cm??? MV Area PHT 4.1 cm??? Mitral E Point Velocity 48.4 cm/s Mitral A Point Velocity 56.2 cm/s Mitral E to A Ratio 0.9 MV Deceleration Time 184.6 ms TR Peak Velocity 257.0 cm/s TR Peak Gradient 26.4 mmHg Right Atrial Pressure 5.0 mmHg Pulmonary Artery Systolic Pressu 31.4 mmHg Right Ventricular Systolic Press 31.4 mmHg PV Peak Velocity 94.7 cm/s PV Peak Gradient 3.6 mmHg FINDINGS Left Ventricle Left ventricular ejection fraction is estimated at 55-60 %. Mildly increased septal wall thickness. Left ventricular cavity size normal. No obvious regional wall motion abnormalities. Right Ventricle Normal right ventricular size and function. Right ventricular systolic pressure within normal limits. Right Atrium Normal right atrial size. Negative agitated saline bubble study for right to left shunt. Left Atrium Mildly increased left atrial area. Mitral Valve Structurally normal mitral valve. No mitral stenosis, regurgitation or prolapse. Aortic Valve Trileaflet aortic valve. No aortic valve stenosis or regurgitation. Tricuspid Valve Structurally normal tricuspid valve. No tricuspid stenosis. Mild tricuspid regurgitation. Pulmonic Valve Pulmonic valve not well visualized. No pulmonic stenosis. No pulmonic regurgitation. Pericardium No pericardial effusion. Aorta Mildly dilated aortic annulus. Mildly dilated proximal ascending aorta (tube). CONCLUSIONS Left ventricular ejection fraction 55-60% Negative bubble study Mild tricuspid regurgitation RVSP 31 Previewed by: Dr. Darek Bundy DO (Electronically Signed) Final Date: 26 January 2025 17:01
[2025-01-26 20:26] LABS: Glucose,Whole Blood 200 mg/dL (70-110)
[2025-01-27 06:10] LABS: Glucose,Whole Blood 145 mg/dL (70-110)
[2025-01-27 07:59] LABS: Basophils # (A) 0.1 k/uL (0-0.2); Basophils % (A) 1 %; Eosinophils # (A) 0.2 k/uL (0-0.7); Eosinophils % (A) 2 %; HCT 46.6 % (39.0-53.0); HGB 15.4 gm/dL (13.0-17.5); Lymphocytes # (A) 2.4 k/uL (1.0-4.8); Lymphocytes % (A) 30 %; MCH 30.6 pg (25.0-35.0); MCV 92.8 fL (80.0-100.0); Mean Platelet Volume 10.1; Monocytes # (A) 0.5 k/uL (0-1.0); Monocytes % (A) 6 %; Neutrophils # (A) 4.9 k/uL (1.3-7.7); Neutrophils % (A) 61 %; Platelet Count 162 k/uL (150-450); RBC 5.02 m/uL (4.30-5.90); WBC 8.1 k/uL (3.8-10.6)
[2025-01-27] MEDS ORDERED: hydrALAZINE HCL 20 MG/ML 1 ML VIAL IVP PRN (10:17)
--- NOTE | 2025-01-27 10:29 | CT ---
EXAMINATION TYPE: CT brain wo con DATE OF EXAM: 01/27/2025 10:25 AM COMPARISON: MRI/CT. CLINICAL INDICATION: Male, 69 years old with history of stroke interval change, f/u cva TECHNIQUE: Brain: Axial CT images of the brain were obtained with coronal and sagittal reformats created and rev iewed. Contrast used: None. Oral contrast used: None. CT DLP: 1141.4 mGycm, Automated exposure control for dose reduction was used. FINDINGS: Brain: Extra-axial spaces: Possible high density curvilinear blood products in the sulci in the area of infa rct versus prominent vessels. Ventricular system: Within normal limits Cerebral parenchyma: Suspected remote injury left parietal region. No acute intraparenchymal hemorrha ge or mass effect. The sandoval-white junction is well differentiated. Cerebellum: Prior injury to the left inferior cerebellar hemisphere as seen on MRI Mass effect: No evidence of midline shift. Intracranial vasculature: Atherosclerotic calcifications of the intracranial vessels. Soft tissues: Normal. Calvarium/osseous structures: No depressed skull fracture. Paranasal sinuses and mastoid air cells: Mild scattered paranasal sinus disease. Visualized orbits: Bilaterally aphakia. IMPRESSION: 1. Stable exam Left parietal lobe infarct as seen on MRI with possible subarachnoid hemorrhage in th e sulci versus cortical laminar necrosis. There is petechial hemorrhage noted on MRI. No intraparench ymal hemorrhage identified. 2. Remote left inferior cerebellar hemisphere injury. [facility], , 01/27/2025 10:27 AM
[2025-01-27 11:09] VITALS: RESP 17
[2025-01-27 11:34] LABS: Glucose,Whole Blood 131 mg/dL (70-110)
[2025-01-27 12:05] VITALS: BP 147/84; PULSE 69; TEMP 98
[2025-01-27] MEDS: amLODIPine 5 MG TAB PO SCH (12:28)
--- NOTE | 2025-01-27 13:49 | P.PN ---
Subjective Progress Note Date: 01/27/25 I am following up with the patient and he continues to feel well and denies any new neurological issues. He denies of any headache. Patient had a repeat CT of the head today to assess if any changes compared to yesterday which is stable. Objective - Vital Signs Vital signs: Vital Signs Temp 98.0 F 01/27/25 11:50 Pulse 69 01/27/25 11:50 Resp 17 01/27/25 11:50 BP 147/84 01/27/25 11:50 Pulse Ox 98 01/27/25 11:50 FiO2 Intake & Output 01/26/25 01/27/25 01/27/25 18:59 06:59 18:59 Intake Total 138 Balance 138 Weight 101 kg Intake: IV 20 Invasive Line 1 20 Oral 118 Other: Voiding Method Toilet Toilet Toilet # Voids 3 1 2 - Exam GENERAL: The patient is lying in bed and is not in acute distress. NEUROLOGICAL: Higher mental function: The patient is awake, alert, oriented to self, place and time. Patient is following commands. No aphasia and no neglect. Cranial nerves: The pupils are round, equal and reactive to light and accommodation. Visual velez are full to confrontation throughout. Extraocular movement is intact no nystagmus is noted. Facial sensation is normal to touch throughout. The facial strength is left nasolabialt flattening (per is chronic). Hearing is mildly decreased bilaterally to hand rub. Tongue is midline and moved [id number] without any difficulty. No dysarthria is noted. Shoulder shrug is normal bilaterally. Motor: The strength is 5 over 5 throughout. Normal tone and bulk. Cerebellum: Normal finger to nose heel to garcia bilaterally. Sensation: Sensation is normal to touch throughout. Reflexes (right/left): 2+ throughout. Plantars are downgoing bilaterally. Some of the workup during this hospital visit consisted of: Lipid panel is triglyceride 125, cholesterol 209, LDL is 129 and HDL is 54 TSH is 2.470 Carotid duplex is reported as no significant stenosis based on the color and grayscale imaging and peak systolic velocity and ratio. Color and grayscale images revealed mild intimal thickening in the carotid bifurcation MRI Brain: There is evolving acute hemorrhagic infarct left parietal lobe posterior watershed region. Has old inferior left cerebellar infarct. CT of the head in our facility is reported as left parietal lobe infarct seen on MRI with possible subarachnoid hemorrhage in the sulci versus cortical laminar necrosis. There is petechial hemorrhage noted on the MRI. No intraparenchymal hemorrhage identified. Remote left inferior cerebellar hemisphere injury. CT angiography of the head and neck is reported as no evidence of dissection of cervical internal carotid artery or vertebral artery. No any evidence of significant stenosis at the carotid bifurcation. No evidence of intracranial high-grade stenosis or intracranial aneurysm. Azygous anterior cerebral artery. Moderate emphysema. Left parietal infarct as seen on prior MRI. Repeat CT of the head today shows stable exam in the left parietal lobe infarct as seen on the MRI with possible subarachnoid hemorrhage and the sulci versus cortical laminar necrosis. There is petechial hemorrhage noted on the MRI. No intraparenchymal hemorrhage identified. Remote left inferior cerebellar hemisphere injury. The echo was reported as ejection fraction of 55 to 60%. Negative bubble study. - Labs CBC & Chem 7: 01/27/25 07:41 01/26/25 04:45 Labs: Abnormal Lab Results - Last 24 Hours (Table) 01/26/25 01/26/25 01/27/25 Range/Units 16:59 20:25 06:06 POC Glucose (mg/dL) 152 H 200 H 145 H (70-110) mg/dL 01/27/25 Range/Units 11:33 POC Glucose (mg/dL) 131 H (70-110) mg/dL Assessment and Plan Assessment: This is a 69-year-old gentleman who was transferred from outside hospital because of altered mental status, confusion, word finding difficulty and a CT of the head showed age-indeterminate infarct in the left parietal lobe, subacute to chronic and requesting escalation of care. CT of the head at the outside hospital showed indeterminate infarct over the left parietal subacute chronic--this is resolved. Acute to subactue (more subacute) ischemic stroke over the left parietal with hemorrhagic transformation MRI. Today he had a repeat CT of the head which is stable and there is no intraparenchymal hemorrhage but shows possible subarachnoid hemorrhage over the left parietal and the sulci versus cortical laminar necrosis. There is petechial hemorrhage noted. Had transient expressive aphasia with confusion. Currently has no focal deficits. Newly Diabetes mellitus 6.8 of hemoglobin A1c Underlying history of memory loss per the for over the last 1 year and it seems mild Remote left inferior cerebellar injury but according to the patient and his family members he had injury to the head while cutting trees and unsure of that led to the injury versus a silent stroke. Chronic low back pain Remote history of tobacco use Plan: Since the CAT scan is stable will resume aspirin 81 mg daily. Patient was not on any antiplatelet prior to this. Will avoid dual antiplatelets because of increased risk of a bleed especially with some bleeding noted on imaging. Recommend a repeat CT of the head within 3 weeks as an outpatient to assess if any new bleeding. Will defer that workup to his primary care physician and neurologist. Also consider amyloid workup as an outpatient. Patient is on Lipitor 40 mg nightly. No need for transfer for neurosurgery evaluation since clinically doing well. The patient has no focal deficit PT OT are consulted Continue neurochecks Cardiac monitoring Recommend 30-day event monitor. Will defer the rest of the medical management to primary team For underlying memory issues, recommend neuropsych evaluation as an outpatient for detailed memory testing as an outpatient. For DVT prophylaxis: Patient is ambulatory. Upon discharge recommend the patient to follow-up with a neurologist as an outpatient within 2 weeks The plan discussed with the patient and his who is at bedside. Also discussed with primary team and his nurse. There is no further neurological workup. Will sign off. Please reconsult if needed. Time with Patient: Less than 30
[2025-01-27] MEDS: ASPIRIN 81 MG PO SCH (14:50)
--- NOTE | 2025-01-27 15:18 | P.DS ---
Providers Date of admission: 01/26/25 11:12 Attending physician: Ceci Manzano MD Consults: 01/23/25 19:38 Consult Physician Routine Consulting Provider: Amparo Loja Consult Reason/Comments: ams Do you want consulting provider notified?: Yes Primary care physician: Yelena Rose MD Hospital Course: Patient 69-year-old male transfer of [facility] for neurology consultation. Patient states that morning he woke up with confusion, he was unable to locate household items and had difficulty finding words. ER FINDINGS:Patient transferred from outside facility Labs: Platelets 147, glucose 160 otherwise CBC and CMP unremarkable EKG normal sinus rhythm, rate 84, no ST T depressions or elevations, no T wave abnormalities noted Chest x-ray from outside facility with no acute cardiopulmonary process CT brain left-sided parietal acutesubacute changes Patient was admitted for the evaluation of acute encephalopathy and aphasia for possible TIA. Ordered PT OT, aspirin, clopidogrel, Lipitor, A1c, lipid panel, echocardiogram, neurochecks, fall precautions. Neurology consulted and further workup was ordered. Echocardiogram showed left ventricular ejection fraction of 55 to 60%, negative bubble study, mild tricuspid regurgitation and RVSP 31. CT angiography of the head and neck showed no evidence of dissection, stenosis in the carotid, vertebral arteries or intracranial vessels. MRI brain without contrast ordered, results reviewed, hemorrhagic stroke in the left parietal region. Repeat brain CT showed no progression or worsening of bleed. Patient noted to have elevated blood pressure and was started on amlodipine. Patient also found to have elevated A1c of 6.8. Patient symptoms did not worsen throughout hospital stay. Patient is cleared for discharge today and prescribed oral aspirin, atorvastatin, metformin and amlodipine. Patient is advised to follow-up with PCP for follow-up and referral to outpatient speech therapy and further workup for dementia as recommended by neurology. Final Diagnosis: #. Acute encephalopathy and Aphasia, secondary to hemorrhagic CVA #. Type II Diabetes #. Hypercholesterolemia #. Thrombocytopenia, resolved #. Chronic back pain Physical examination: Vital signs reviewed General: non toxic, no distress Derm: no unusual rashes/lesions, warm Head: atraumatic, normocephalic, symmetric Eyes: EOMI, anicteric sclera, pupils equal round reactive to light ENT: Nose and ears atraumatic Neck: No cervical lymphadenopathy, trachea midline, supple Mouth: no lip lesion, mucus membranes moist Cardiovascular: S1S2 reg, no murmur Lungs: CTA bilateral, no rhonchi, no rales, no accessory muscle use Abdominal: soft, nondistended, nontender to palpation, no guarding Ext: muscle strength 5 out of 5 in all 4 extremities grossly, no gross muscle atrophy, no contractures, positive dorsalis pedis pulse bilateral, no edema Neuro: CN II-XI grossly intact, no gross focal neuro deficits Psych: Alert, oriented, appropriate affect and mood I saw and evaluated the patient during the roman and critical portions of this encounter, and discussed the case in detail with the resident author of this note, I agree with the Assessment and Plan, and my changes, if any, are highlighted in blue. Patient Condition at Discharge: Fair Plan - Discharge Summary Discharge Rx Participant: Yes New Discharge Prescriptions: New Aspirin 81 mg PO DAILY #90 tab Atorvastatin [Lipitor] 40 mg PO HS #90 tab metFORMIN HCL 500 mg PO DAILY #30 tablet amLODIPine [Norvasc] 5 mg PO DAILY #60 tab Continue Gabapentin [Neurontin] 300 mg PO HS HYDROcodone/APAP 10-325MG [[place] 10-325] 1 tab PO TID Gabapentin [Neurontin] 100 mg PO BID@0800,1500 Sildenafil Citrate [Viagra] 100 mg PO DAILY PRN PRN Reason: E.D. Discharge Medication List Gabapentin [Neurontin] 100 mg PO BID@0800,1500 01/23/25 [History] Gabapentin [Neurontin] 300 mg PO HS 01/23/25 [History] HYDROcodone/APAP 10-325MG [[place] 10-325] 1 tab PO TID 01/23/25 [History] Sildenafil Citrate [Viagra] 100 mg PO DAILY PRN 01/23/25 [History] Aspirin 81 mg PO DAILY #90 tab 01/27/25 [Rx] Atorvastatin [Lipitor] 40 mg PO HS #90 tab 01/27/25 [Rx] amLODIPine [Norvasc] 5 mg PO DAILY #60 tab 01/27/25 [Rx] metFORMIN HCL 500 mg PO DAILY #30 tablet 01/27/25 [Rx] Follow up Appointment(s)/Referral(s): Yelena Rose MD [Primary Care Provider] - 1 Week (February 03, 2:00) Patient Instructions/Handouts: Ischemic Stroke (DC), Intracerebral Hemorrhage (DC), Self Care Measures After a Stroke (DC) Activity/Diet/Wound Care/Special Instructions: Follow up with primary care physician for referral to outpatient speech therapy Discharge Disposition: HOME SELF-CARE
== END 2025-01-27 15:06 | disposition home or self-care (01) | DRG 64 ==
LOC: EC 19:24 → 3SCARD 19:39 → OBSVTOIN 01-26 11:12
PROVIDERS: ADMIT Internal Medicine; ATTEND Internal Medicine
DX: I63.532 Cerebral infarction due to unspecified occlusion or stenosis of left posterior cerebral artery (principal); I60.8 Other nontraumatic subarachnoid hemorrhage; G93.49 Other encephalopathy; E11.65 Type 2 diabetes mellitus with hyperglycemia; D69.6 Thrombocytopenia, unspecified; J45.909 Unspecified asthma, uncomplicated; R47.01 Aphasia; R29.700 NIHSS score 0; R41.3 Other amnesia; M19.90 Unspecified osteoarthritis, unspecified site; G89.29 Other chronic pain; M51.26 Other intervertebral disc displacement, lumbar region; E78.00 Pure hypercholesterolemia, unspecified; Z87.891 Personal history of nicotine dependence; Z79.899 Other long term (current) drug therapy
CPT/HCPCS: 70450; 70496; 70498; 70551; 80048; 80053; 80061; 83036; 83735; 84443; 85025; 93225; 93306; 93880; 96372; 99285

== ENCOUNTER 2025-03-02 11:42 | Inpatient (IN) | payer MEDICARE ==
--- NOTE | 2025-03-02 13:20 | ED ---
General Adult HPI - General Chief complaint: Arrhythmia/Palpitations Stated complaint: AFIB/Transfer Time Seen by Provider: 03/02/25 11:43 Source: patient, RN/MD, EMS, RN notes reviewed, old records reviewed Mode of arrival: EMS Limitations: no limitations - History of Present Illness Initial comments: Patient is a 69-year-old male presenting to the emergency department as a transfer from [place] with concern with new onset A-fib. Patient admits to having palpitations. Patient has also had significant fatigue. Patient states he was here a month ago for CVA. Patient states he has recovered from this and is currently symptom-free. No history of previous dysrhythmia. - Related Data Home Medications Medication Instructions Recorded Confirmed Gabapentin [Neurontin] 100 mg PO BID@0800,1500 01/23/25 03/02/25 Gabapentin [Neurontin] 300 mg PO HS 01/23/25 03/02/25 HYDROcodone/APAP 10-325MG [Dodson 1 tab PO TID 01/23/25 03/02/25 10-325] Sildenafil Citrate [Viagra] 100 mg PO DAILY PRN 01/23/25 03/02/25 Previous Rx's Medication Instructions Recorded Aspirin 81 mg PO DAILY #90 tab 01/27/25 Atorvastatin [Lipitor] 40 mg PO HS #90 tab 01/27/25 amLODIPine [Norvasc] 5 mg PO DAILY #60 tab 01/27/25 metFORMIN HCL 500 mg PO DAILY #30 tablet 01/27/25 Allergies Allergy/AdvReac Type Severity Reaction Status Date / Time No Known Allergies Allergy Verified 03/02/25 12:16 Review of Systems ROS Statement: Those systems with pertinent positive or pertinent negative responses have been documented in the HPI. ROS Other: All systems not noted in ROS Statement are negative. Constitutional: Denies: fever ENT: Reports: congestion Respiratory: Reports: cough. Denies: dyspnea Cardiovascular: Reports: palpitations. Denies: chest pain Endocrine: Reports: fatigue Musculoskeletal: Denies: back pain Past Medical History Past Medical History: Asthma, Osteoarthritis (OA) Additional Past Medical History / Comment(s): 3 herniated discs in lower back. History of Any Multi-Drug Resistant Organisms: None Reported Past Surgical History: Back Surgery Additional Past Surgical History / Comment(s): Bilateral cataract surgery, vasectomy. Past Anesthesia/Blood Transfusion Reactions: No Reported Reaction Past Psychological History: No Psychological Hx Reported Smoking Status: Former smoker Past Alcohol Use History: Occasional Past Drug Use History: None Reported - Past Family History Mother Family Medical History: Cancer Additional Family Medical History / Comment(s): Uterine cancer. Father Family Medical History: Cancer Additional Family Medical History / Comment(s): Prostate and colon cancer. General Exam Limitations: no limitations General appearance: alert, in no apparent distress Head exam: Present: normocephalic Eye exam: Present: normal appearance Neck exam: Present: normal inspection Respiratory exam: Present: normal lung sounds bilaterally Cardiovascular Exam: Present: tachycardia, irregular rhythm GI/Abdominal exam: Present: soft. Absent: tenderness Extremities exam: Present: normal inspection. Absent: pedal edema, calf tenderness Neurological exam: Present: alert Psychiatric exam: Present: normal affect, normal mood Skin exam: Present: normal color Course Vital Signs 03/02/25 03/02/25 03/02/25 11:50 12:00 12:15 Temperature 97.4 F L Pulse Rate 111 H 118 H 86 Respiratory 30 H 24 22 Rate Blood Pressure 140/85 136/75 111/62 O2 Sat by Pulse 95 95 95 Oximetry 03/02/25 03/02/25 12:30 12:45 Temperature Pulse Rate 95 89 Respiratory 20 22 Rate Blood Pressure 91/64 96/60 O2 Sat by Pulse 95 95 Oximetry Medical Decision Making - Medical Decision Making Was pt. sent in by a medical professional or institution (, PA, DOG POUND ATTENDANT, urgent care, hospital, or penitentiary...) When possible be specific @ -Patient was sent from [facility] Did you speak to anyone other than the patient for history (EMS, parent, family, police, friend...)? What history was obtained from this source @ -I did speak to transferring physician regarding patient's presentation and concerns and history and lab work Did you review nursing and triage notes (agree or disagree)? Why? @ -I reviewed and agree with nursing and triage notes Were old charts reviewed (outside hosp., previous admission, EMS record, old EKG, old radiological studies, urgent care reports/EKG's, penitentiary records)? Report findings @ -Chart reviewed from [facility] including troponin and EKG and radiology results Differential Diagnosis (chest pain, altered mental status, abdominal pain women, abdominal pain men, vaginal bleeding, weakness, fever, dyspnea, syncope, headache, dizziness, GI bleed, back pain, seizure, CVA, palpatations, mental health, musculoskeletal)? @ -MDM differential palpitations differential Palpitations Ventricular arrhythmias, atrial arrhythmias, myocardial infarction, anemia, thyrotoxicosis, electrolyte imbalance, hypokalemia, pulmonary embolism, pulmonary disease, drugs, alcohol, anxiety, stress.... This is not meant to be an all-inclusive list. EKG interpreted by me (3pts min.). @ -As above X-rays interpreted by me (1pt min.). @ -None done CT interpreted by me (1pt min.). @ -None done U/S interpreted by me (1pt. min.). @ -None done What testing was considered but not performed or refused? (CT, X-rays, U/S, labs)? Why? @ -None What meds were considered but not given or refused? Why? @ -Considered heparinization however patient did have large stroke 1 month ago with potential hemorrhagic component, therefore anticoagulation will be deferred to cardiology Did you discuss the management of the patient with other professionals (professionals i.e. , PA, DOG POUND ATTENDANT, lab, RT, psych nurse, social worker palliative care, contact center professional, teacher, ship officer, case finishing machine adjuster)? Give summary @ -No Was smoking cessation discussed for >3mins.? @ -No Was critical care preformed (if so, how long)? @ -31 minutes critical care time Were there social determinants of health that impacted care today? How? (Homelessness, low income, unemployed, alcoholism, drug addiction, transportation, low edu. Level, literacy, decrease access to med. care, retirement, rehab)? @ -No Was there de-escalation of care discussed even if they declined (Discuss DNR or withdrawal of care, Hospice)? DNR status @ -No What co-morbidities impacted this encounter? (DM, HTN, Smoking, COPD, CAD, Cancer, CVA, ARF, Chemo, Hep., AIDS, mental health diagnosis, sleep apnea, morbid obesity)? @ -Recent stroke Was patient admitted / discharged? Hospital course, mention meds given and route, prescriptions, significant lab abnormalities, going to OR and other pertinent info. @ -Patient presents as transfer from [place] with new onset A-fib RVR. Patient will be admitted. Admission orders written. Patient updated. Cardizem drip started, cardiology placed on ordered consult. Undiagnosed new problem with uncertain prognosis? @ -No Drug Therapy requiring intensive monitoring for toxicity (Heparin, Nitro, Insulin, Cardizem)? @ -Cardizem drip Were any procedures done? @ -No Diagnosis/symptom? @ -New onset A-fib with RVR Acute, or Chronic, or Acute on Chronic? @ -Acute Uncomplicated (without systemic symptoms) or Complicated (systemic symptoms)? @ -Default Side effects of treatment? @ -No Exacerbation, Progression, or Severe Exacerbation? @ -No Poses a threat to life or bodily function? How? (Chest pain, [place], AL, pneumonia, PE, COPD, DKA, ARF, appy, cholecystitis, CVA, Diverticulitis, Homicidal, Suicidal, threat to staff... and all critical care pts) @ -Threat to cardiac function Disposition Clinical Impression: Atrial fibrillation, Tachycardia Disposition: ADMITTED IP TO THIS HOSP Is patient prescribed a controlled substance at d/c from ED?: No Referrals: Yelena Rose MD [Primary Care Provider] - 1-2 days Time of Disposition: 13:25
[2025-03-02] MEDS ORDERED: NALOXONE 0.4 MG/ML 1 ML VIAL IV PRN (13:27)
[2025-03-02] MEDS: DILTIAZEM 125 MG in SODIUM CHLORIDE 0.9% 100 ML IV SCH (13:46)
[2025-03-02 14:36] LABS: Influenza A Not Detected (Not Detectd); Influenza B Not Detected (Not Detectd); RSV Not Detected (Not Detectd)
[2025-03-02] MEDS: GABAPENTIN 100 MG CAP PO SCH (15:15)
[2025-03-02] MEDS: HYDROcodone/APAP 10-325MG 1 EACH TAB PO SCH (15:15)
[2025-03-02 16:46] LABS: Glucose,Whole Blood 190 mg/dL (70-110)
[2025-03-02] MEDS: ONDANSETRON 4 MG/2 ML VIAL IVP PRN (18:01)
--- NOTE | 2025-03-02 19:24 | CT ---
EXAMINATION TYPE: CT brain wo con DATE OF EXAM: 03/02/2025 6:58 PM COMPARISON: 01/27/2025. CLINICAL INDICATION: Male, 69 years old with history of prior CT showed brain bleed, weakness, ams TECHNIQUE: Brain: Axial CT images of the brain were obtained with coronal and sagittal reformats created and rev iewed. Contrast used: None. Oral contrast used: None. CT DLP: 1175.6 mGycm, Automated exposure control for dose reduction was used. FINDINGS: Brain: Extra-axial spaces: No abnormal extra-axial fluid collections. Ventricular system: Within normal limits Cerebral parenchyma: Redemonstration of left parietal/temporal region CVA seen on prior. No evidence for intracranial hemorrhage. Hypodensity cortical laminar necrosis. No acute intraparenchymal hemorrh age or mass effect. The sandoval-white junction is well differentiated. Cerebellum: Unremarkable. Redemonstration of left inferior cerebellar hemisphere injury. Mass effect: No evidence of midline shift. Intracranial vasculature: unremarkable Soft tissues: Normal. Calvarium/osseous structures: No depressed skull fracture. Paranasal sinuses and mastoid air cells: Mild scattered paranasal sinus disease. Visualized orbits: Bilateral aphakia IMPRESSION: Acute/subacute CVA involving the left cerebellar hemisphere. Findings new from 01/27/2025 Remote injury to the left parietal temporal region. [facility], , 03/02/2025 7:22 PM
[2025-03-02] MEDS: ATORVASTATIN 40 MG TAB PO SCH (21:02)
[2025-03-02] MEDS: GABAPENTIN 300 MG CAP PO SCH (21:03)
--- NOTE | 2025-03-02 21:41 | CT ---
EXAMINATION TYPE: CT angio chest DATE OF EXAM: 03/02/2025 9:26 PM COMPARISON: 03/02/2025. CLINICAL INDICATION: Male, 69 years old with history of elevated d-dimer; Elevated d-dimer, r/o PE. S hortness of breath, pain. TECHNIQUE/CONTRAST: CTA scan of the thorax is performed with IV Contrast, patient injected with 100 ml mL of Isovue 370, MIP images are created and reviewed these are created on a separate workstation.. CT DLP: 543 mGycm, Automated exposure control for dose reduction was used. FINDINGS: Lungs/Pleura: No evidence of focal consolidation, pleural effusion or pneumothorax. Mild centrilobula r emphysema. Airway: Large airways are patent. Heart: Cardiomegaly is demonstrated. No significant coronary artery calcifications. Vasculature: There is no evidence for a filling defect within the pulmonary vasculature to suggest ac tala pulmonary embolism. The pulmonary artery is of normal size. Mediastinum: No gross evidence of adenopathy. Musculoskeletal: Mild disc degeneration changes are present throughout the thoracolumbar spine second caity to osteophyte formation and facet joint arthropathy. Soft Tissues/lymph nodes: Unremarkable. Lower neck: No significant findings. Upper Abdomen: Left renal 33 mm cyst. No follow-up recommended. No obstructing left renal calculus me asuring 12 mm no follow-up recommended. Phrygian cap within the gallbladder with layering biliary rob ris. Indeterminate right hepatic lobe arterial phase enhancing 12 mm lesion. Diffusely attenuation to liver. IMPRESSION: 1. No evidence of pulmonary embolism. 2. Indeterminate right hepatic lobe arterial phase enhancing 12 mm lesion. Consider further evaluati on MRI liver with IV contrast. 3. Hepatic steatosis. 4. Phrygian cap within the gallbladder with layering biliary debris. 5. Mild centrilobular emphysema. 6. Nonobstructing left renal calculus. Follow up recommendations for incidental pulmonary nodules, if there are any, are per [employer] or [place]. https://radiopaedia.org/articles/zoghylypfr-bmwdlab-ikkiukfpj-lwixqq-[email or web address]-[email or web address]?lang=us [facility], , 03/02/2025 9:38 PM
--- NOTE | 2025-03-02 22:50 | HP ---
HISTORY AND PHYSICAL HISTORY OF PRESENT ILLNESS: A 69-year-old white male came to the hospital with new onset atrial fibrillation. He had a stroke with intercranial bleed. Apparently a month ago, he came into the hospital from [place] with concern for atrial fibrillation. He has had palpitations, significant fatigue, stroke, here for CVA a month ago. He recovered from this. He has had memory loss, etc. HOME MEDICATIONS: 1. Gabapentin. 2. Casanova. 3. Viagra. ALLERGIES: Negative. REVIEW OF SYSTEMS: A 14-point review of systems otherwise negative. PAST MEDICAL HISTORY: Asthma, osteoarthritis, 3 herniated disks in his back. PAST SURGICAL HISTORY: Back surgery, bilateral cataract surgery, vasectomy. SOCIAL HISTORY: Former smoker. FAMILY HISTORY: Mother, cancer of uterine. Father, cancer of prostate, colon. PHYSICAL EXAMINATION: CARDIOVASCULAR: S1, S2. LUNGS: Transmitted upper sounds. He is wearing oxygen 2 L. NEUROLOGIC: Cranial nerves intact. PSYCH: Fair mood and affect. VITAL SIGNS: Temperature 97.4, pulse is 111, respiratory rate 22 to 30, blood pressure 111 to 140 over 60 to 80. ASSESSMENT: New onset atrial fibrillation, tachycardia, elevated D-dimer. CTA of the chest. Prognosis guarded. Get Cardiology consult. Please see further orders. MMODL / IJN: [id number] /
[2025-03-03 06:54] LABS: HGB 13.4 g/dL (13.0-17.0); MCH 30.9 pg (27.0-32.0); MCHC 34.4 g/dL (32.0-37.0); MCV 89.9 fL (80.0-97.0); Platelet Count 156 10*3/uL (140-440); RBC 4.34 10*6/uL (4.40-5.60); RDW 13.2 % (11.5-14.5); WBC 11.15 10*3/uL (4.50-10.00)
[2025-03-03 07:11] LABS: African American GFR (CKD) >90 (>60 ml/min/1.73 sqM); Anion Gap 7 mmol/L; Blood Urea Nitrogen 20 mg/dL (9-20); Calcium 9.3 mg/dL (8.4-10.2); Carbon Dioxide 27 mmol/L (22-30); Chloride 102 mmol/L (98-107); Glucose 149 mg/dL (74-99); Non-African American GFR(CKD) >90 (>60 ml/min/1.73 sqM); Potassium 3.8 mmol/L (3.5-5.1); Sodium 136 mmol/L (137-145)
[2025-03-03] MEDS ORDERED: metFORMIN 500 MG TAB PO SCH ×2 (07:30)
[2025-03-03] MEDS: ASPIRIN 81 MG PO SCH (08:47)
[2025-03-03] MEDS: amLODIPine 5 MG TAB PO SCH (08:49)
[2025-03-03] MEDS: metFORMIN 500 MG TAB PO SCH (08:50)
--- NOTE | 2025-03-03 11:18 | P.CRDCN ---
History of Present Illness History of present illness: HISTORY OF PRESENT ILLNESS: This is a 69-year-old male with a past medical history significant for hypertension, hyperlipidemia, osteoarthritis, former nicotine dependence, and obesity. Patient used to follow in the office with Dr. Harrington but has not been seen since 2019. We have been asked to see the patient in consultation for atrial fibrillation. Patient examined at the bedside. Patient presented to the hospital with a chief complaint of feeling unwell. He reports nausea, sweating, lightheadedness, dizziness, and shortness of breath. Patient was found to be in afib with RVR. He was started on IV Cardizem. He remains in atrial fibrillation with controlled ventricular rate. He remains on IV Cardizem at 5mg/hr. He also reports when he turns his head he is having dizziness. DIAGNOSTICS: - EKG reveals atrial fibrillation with RVR - CT of the brain: Acute/subacute CVA involving left cerebellar hemisphere. Remote injury to the left parietal temporal region. -Chest CTA: Negative for pulmonary embolism. Indeterminate right hepatic lobe arterial phase enhancing 12 mm lesion. Consider further evaluation MRI of the liver with IV contrast. - Laboratory data: WBC 11.15. Hemoglobin 13.4. Platelet count 156. D-dimer 1.29. Sodium 136. Potassium 3.8. BUN 20. Creatinine 0.77. - Current home cardiac medications include amlodipine 5 mg daily, Lipitor 40 mg at night, aspirin 81 mg daily - Most recent echocardiogram obtained in January 2025 revealed ejection fraction 55 to 60%, no obvious regional wall motion abnormalities, negative bubble study, mild TR - Cardiac catheterization history: May 2019 which was negative for ischemia - Patient underwent Holter monitor in January 2025 for 14 days revealing sinus mechanism with heart rates ranging between 50-105 bpm. Average 70 bpm. 2 runs of nonsustained VT with longest of 8 beats and 7 runs of nonsustained SVT very brief longest 4 beats. REVIEW OF SYSTEMS: At the time of my exam: CONSTITUTIONAL: Denies fever or chills. HEENT: Denies blurred vision, vision changes, or eye pain. Denies hemoptysis CARDIOVASCULAR: Denies chest pain. Denies orthopnea. Denies PND. Denies palpitations RESPIRATORY: Denies shortness of breath. GASTROINTESTINAL: Denies abdominal pain. Denies nausea or vomiting. HEMATOLOGIC: Denies bleeding disorders. GENITOURINARY: Denies any blood in urine. SKIN: Denies pruitis. Denies rash. PHYSICAL EXAM: VITAL SIGNS: Reviewed. GENERAL: Well-developed in no acute distress. HEENT: Head is normocephalic. Pupils are equal, round. Sclerae anicteric. Mucous membranes of the mouth are moist. Neck supple. No JVD or thyromegaly LUNGS: Respirations even and unlabored. Lungs essentially clear to auscultation bilaterally. HEART: Irregular rate and rhythm. S1 and S2 heard. ABDOMEN: Soft. Nondistended. Nontender. EXTREMITIES: Normal range of motion. No clubbing or cyanosis. Peripheral pulses intact. No lower extremity edema NEUROLOGIC: Awake and alert. Oriented x 3. ASSESSMENT: New onset atrial fibrillation Acute/subacute CVA involving left cerebellar hemisphere History of CVA in January 2025 with possible hemorrhage per CT Hypertension Hyperlipidemia Osteoarthritis Former nicotine dependence Obesity: BMI 34.5 PLAN: No need to repeat echocardiogram as this was performed in January 2025 Check TSH Resume home cardiac medications Discontinue IV Cardizem Begin metoprolol 25mg BID Obtain additional troponin level Begin anticoagulation with cleared by neurology. Recommend initiating ADITYA from a cardiology standpoint. If needed, consider SHERRILL to assess for residual thrombus Further recommendations pending patient course Nurse practitioner note has been reviewed by physician. Signing provider agrees with the documented findings, assessment, and plan of care documented by VENDING MACHINE COLLECTOR as a scribe. Past Medical History Past Medical History: Asthma, CVA/TIA, Hyperlipidemia, Hypertension, Osteoarthritis (OA) Additional Past Medical History / Comment(s): 3 herniated discs in lower back. pre-diabetic History of Any Multi-Drug Resistant Organisms: None Reported Past Surgical History: Back Surgery Additional Past Surgical History / Comment(s): Bilateral cataract surgery, vasectomy. Past Anesthesia/Blood Transfusion Reactions: No Reported Reaction Past Psychological History: No Psychological Hx Reported Smoking Status: Former smoker Past Alcohol Use History: Occasional Additional Past Alcohol Use History / Comment(s): Quit smoking 5 yrs ago, smoked for 25 yrs. Past Drug Use History: None Reported - Past Family History Mother Family Medical History: Cancer Additional Family Medical History / Comment(s): Uterine cancer. Father Family Medical History: Cancer Additional Family Medical History / Comment(s): Prostate and colon cancer. Medications and Allergies Home Medications Medication Instructions Recorded Confirmed Type Gabapentin [Neurontin] 100 mg PO BID@0800,1500 01/23/25 03/02/25 History Gabapentin [Neurontin] 300 mg PO HS 01/23/25 03/02/25 History HYDROcodone/APAP 10-325MG [Orion 1 tab PO TID 01/23/25 03/02/25 History 10-325] Sildenafil Citrate [Viagra] 100 mg PO DAILY PRN 01/23/25 03/02/25 History Aspirin 81 mg PO DAILY #90 tab 01/27/25 03/02/25 Rx Atorvastatin [Lipitor] 40 mg PO HS #90 tab 01/27/25 03/02/25 Rx amLODIPine [Norvasc] 5 mg PO DAILY #60 tab 01/27/25 03/02/25 Rx metFORMIN HCL 500 mg PO DAILY #30 tablet 01/27/25 03/02/25 Rx Allergies Allergy/AdvReac Type Severity Reaction Status Date / Time No Known Allergies Allergy Verified 03/02/25 12:16 Physical Exam Vitals: Vital Signs Temp Pulse Pulse Resp BP BP Pulse Ox 03/03/25 03:53 97.0 F L 79 18 100/63 94 L 03/02/25 23:20 97.2 F L 93 18 109/68 94 L 03/02/25 20:55 98.0 F 81 18 105/59 96 03/02/25 16:13 97.8 F 86 16 128/72 96 03/02/25 15:39 97.6 F 03/02/25 15:30 80 17 98/59 95 03/02/25 14:30 87 14 98/57 95 03/02/25 13:52 92 14 97/57 95 03/02/25 12:45 89 22 96/60 95 03/02/25 12:30 95 20 91/64 95 03/02/25 12:15 86 22 111/62 95 03/02/25 12:00 118 H 24 136/75 95 03/02/25 11:50 97.4 F L 111 H 30 H 140/85 95 Intake and Output 03/02/25 03/03/25 03/03/25 22:59 06:59 14:59 Intake Total 10 Balance 10 Intake: IV 10 Invasive Line 2 10 Other: Voiding Method Toilet Urinal # Voids 1 1 # Bowel Movements 1 Weight 102.965 kg Results 03/03/25 06:09 03/03/25 06:09 CBC 03/03/25 Range/Units 06:09 WBC 11.15 H (4.50-10.00) 10*3/uL RBC 4.34 L (4.40-5.60) 10*6/uL Hgb 13.4 (13.0-17.0) g/dL Hct 39.0 L (39.6-50.0) % Plt Count 156 (140-440) 10*3/uL Comprehensive Metabolic Panel 03/03/25 Range/Units 06:09 Sodium 136 L (137-145) mmol/L Potassium 3.8 (3.5-5.1) mmol/L Chloride 102 (98-107) mmol/L Carbon Dioxide 27 (22-30) mmol/L BUN 20 (9-20) mg/dL Creatinine 0.77 (0.66-1.25) mg/dL Glucose 149 H (74-99) mg/dL Calcium 9.3 (8.4-10.2) mg/dL Current Medications Generic Name Dose Route Start Last Admin Trade Name Freq PRN Reason Stop Dose Admin Hydrocodone Bitart/Acetaminophen 1 each 03/02/25 16:00 03/02/25 21:02 Hydrocodone/Apap 10-325mg 1 Each Tab PO 1 each TID CYNDEE Administration Albuterol/Ipratropium 3 ml 03/02/25 20:57 Ipratropium-Albuterol 3 Ml Neb INHALATION RT-QID PRN Shortness Of Breath Or Wheezing Amlodipine Besylate 5 mg 03/03/25 09:00 Amlodipine 5 Mg Tab PO DAILY CYNDEE Aspirin 81 mg 03/03/25 09:00 Aspirin 81 Mg PO DAILY CYNDEE Atorvastatin Calcium 40 mg 03/02/25 21:00 03/02/25 21:02 Atorvastatin 40 Mg Tab PO 40 mg HS CYNDEE Administration Gabapentin 300 mg 03/02/25 21:00 03/02/25 21:03 Gabapentin 300 Mg Cap PO 300 mg HS CYNDEE Administration Gabapentin 100 mg 03/02/25 15:00 03/02/25 15:15 Gabapentin 100 Mg Cap PO 100 mg BID@0800,1500 CYNDEE Administration Diltiazem HCl 125 mg/ Sodium 125 mls @ 5 mls/hr 03/02/25 13:35 03/02/25 13:46 Chloride IV 5 mg/hr .Q24H CYNDEE 5 mls/hr Administration 5 MG/HR Metformin HCl 500 mg 03/03/25 09:00 Metformin 500 Mg Tab PO DAILY CYNDEE Naloxone HCl 0.2 mg 03/02/25 13:27 Naloxone 0.4 Mg/Ml 1 Ml Vial IV Q2M PRN Opioid Reversal Ondansetron HCl 4 mg 03/02/25 17:49 03/02/25 18:01 Ondansetron 4 Mg/2 Ml Vial IVP 4 mg Q6HR PRN Administration Nausea And Vomiting Intake and Output 03/02/25 03/03/25 03/03/25 22:59 06:59 14:59 Intake Total 10 Balance 10 Intake: IV 10 Invasive Line 2 10 Other: Voiding Method Toilet Urinal # Voids 1 1 # Bowel Movements 1 Weight 102.965 kg 03/03/25 06:09 03/03/25 06:09
[2025-03-03] MEDS: METOPROLOL TARTRATE 25 MG TAB PO SCH (11:58)
--- NOTE | 2025-03-03 12:40 | P.CNOR ---
History of Present Illness - [facility] Consult date: 03/03/25 Consult reason: neck pain History of present illness: Patient is a 69-year-old male who has been admitted to [facility] due to generalized fatigue along with new onset A-fib with RVR. Patient was admitted under internal medicine with multiple medical specialties placed on consult. Orthopedic team was consulted for neck pain. Patient has a history of recent strokes, most recently being in January 2025. Patient was evaluated at bedside, he is resting comfortably in his hospital bed, his is present at bedside. Patient denies any neck pain at this time. He did complain of some vague discomfort when he would turn his head to the left, this pain was reproduced more on the posterior side, he also admitted to some dizziness with the same motion. There was a remote history of possible fall, he states he, slid down a chair a few days ago. He denies hitting his head or losing consciousness. Patient normally utilizes no assistive devices on a daily basis for ambulation. Patient denies any kenyetta weakness to the bilateral upper or lower extremities. He notes from his previous stroke last month that affected more of his speech. Patient denies any kenyetta weakness or loss of motio n to the bilateral lower extremities. He denies any paresthesias to the bilateral upper or lower extremities. He denies any genital or perineal numbness or tingling, he denies loss of bowel or bladder function. Patient states he has [facility] a [facility] for low back issues, he does take pain medication on occasion for this. He denies any previous orthopedic surgery to the cervical, thoracic or lumbar spine. Review of Systems Constitutional: Reports as per HPI Past Medical History Past Medical History: Asthma, CVA/TIA, Hyperlipidemia, Hypertension, Osteoarthr itis (OA) Additional Past Medical History / Comment(s): 3 herniated discs in lower back. pre-diabetic History of Any Multi-Drug Resistant Organisms: None Reported Past Surgical History: Back Surgery Additional Past Surgical History / Comment(s): Bilateral cataract surgery, vasectomy. Past Anesthesia/Blood Transfusion Reactions: No Reported Reaction Past Psychological History: No Psychological Hx Reported Smoking Status: Former smoker Past Alcohol Use History: Occasional Additional Past Alcohol Use History / Comment(s): Quit smoking 5 yrs ago, smoked for 25 yrs. Past Drug Use History: None Reported - Past Family History Mother Family Medical History: Cancer Additional Family Medical History / Comment(s): Uterine cancer. Father Family Medical History: Cancer Additional Family Medical History / Comment(s): Prostate and colon cancer. Medications and Allergies Home Medications Medication Instructions Recorded Confirmed Type Gabapentin [Neurontin] 100 mg PO BID@0800,1500 01/23/25 03/02/25 History Gabapentin [Neurontin] 300 mg PO HS 01/23/25 03/02/25 History HYDROcodone/APAP 10-325MG [[place] 1 tab PO TID 01/23/25 03/02/25 History 10-325] Sildenafil Citrate [Viagra] 100 mg PO DAILY PRN 01/23/25 03/02/25 History Aspirin 81 mg PO DAILY #90 tab 01/27/25 03/02/25 Rx Atorvastatin [Lipitor] 40 mg PO HS #90 tab 01/27/25 03/02/25 Rx amLODIPine [Norvasc] 5 mg PO DAILY #60 tab 01/27/25 03/02/25 Rx metFORMIN HCL 500 mg PO DAILY #30 tablet 01/27/25 03/02/25 Rx Allergies Allergy/AdvReac Type Severity Reaction Status Date / Time No Known Allergies Allergy Verified 03/02/25 12:16 Physical Examination Gen: AOx3, NAD VSS stable at this time Integument: No open lesions or sores, areas of erythema or soft tissue swelling present in the cervical region Palpation: Patient has no tenderness with palpation to the midline or paraspinal region of the cervical or upper thoracic spine ROM: Full range of motion in all major muscle groups of the bilateral upper and lower extremities, there are no focal deficits appreciated Sensory Exam: Senory exam to light touch is intact C5-T1 Senosry exam to light touch is intact L2-S1 Motor: 5/5 strength appreciated in the bilateral upper extremities with shoulder elevation, shoulder abduction, elbow extension, elbow flexion, wrist extension, wrist flexion, 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 5/5 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 appreciate the bilateral lower extremities with hip flexion, knee extension, knee flexion, plantarflexion, dorsiflexion, EHL, FHL Reflexes: 2/4 in all UE and LE Negative Noel's bilaterally Negative clonus bilaterally Special Test: Negative straight leg raise bilaterally Results - Labs Labs: Abnormal Lab Results - Last 24 Hours (Table) 03/02/25 03/02/25 03/03/25 Range/Units 16:44 17:13 06:09 WBC 11.15 H (4.50-10.00) 10*3/uL RBC 4.34 L (4.40-5.60) 10*6/uL Hct 39.0 L (39.6-50.0) % D-Dimer 1.29 H (<0.60) mg/L FEU Sodium (137-145) mmol/L Glucose (74-99) mg/dL POC Glucose (mg/dL) 190 H (70-110) mg/dL 03/03/25 Range/Units 06:09 WBC (4.50-10.00) 10*3/uL RBC (4.40-5.60) 10*6/uL Hct (39.6-50.0) % D-Dimer (<0.60) mg/L FEU Sodium 136 L (137-145) mmol/L Glucose 149 H (74-99) mg/dL POC Glucose (mg/dL) (70-110) mg/dL H & H 03/03/25 Range/Units 06:09 Hgb 13.4 (13.0-17.0) g/dL Hct 39.0 L (39.6-50.0) % Result Diagrams: 03/03/25 06:09 03/03/25 06:09 Assessment and Plan Assessment: Neck pain Chronic low back pain A-fib Acute/chronic CVA Other medical comorbidities Plan: I was able to discuss the case including physical exam findings with my attending Dr. Ibarra. No orthopedic spine surgery is recommended at this time Patient seems very asymptomatic with regards to the current symptoms, I will hold off on any cervical imaging at this time. I did review a lumbar MRI that was done in 2019, images did demonstrate degenerative changes throughout the lumbar spine with varying degrees of lumbar spondylosis and facet arthropathy. Patient seems very asymptomatic with regards to his low back issues. He feels that the pain medication works when he needs it to. Pain control, recommend continuing current regimen GI and DVT prophylaxis per other medical specialty recommendations Weight-bear as tolerated Other medical specialty recommendations appreciated Discussed with both the patient and his that I would place our office information in chart for follow-up. Orthopedically patient remains stable, plea se contact our service with any further questions Time with Patient: Less than 30
--- NOTE | 2025-03-03 23:12 | PN ---
PROGRESS NOTE The patient came in with a new stroke, awake and disoriented in the morning. At this point, he is found to have another stroke. He had difficulty moving his neck today. Orthopedic consultation was done. Cardiology was done; awaiting for blood thinner recommendations. Currently, he is on aspirin due to an intracranial bleed. He wants to go. I do not really want to give him anything more than that at this time. He came with new onset AFib with RVR. Cardiology wants to possibly start him on a blood thinner, Eliquis or something like that, but waiting for Neurology's recommendation. He has stiffness with his neck pain. Orthopedics saw him and they did not find anything really wrong with him per Orthopedics and Spinal Surgery. He is sitting up in the bed this afternoon, playing cards with his . He has some dizziness, but he is much better. He is just on the aspirin for blood thinners. OBJECTIVE: VITAL SIGNS: Blood pressure 115 to 130s, O2 95 on room air, temp 97.4, pulse is 94, respiratory rate 14 to 16. CARDIOVASCULAR: S1, S2. LUNGS: Scattered wheeze. GI: Soft. NEUROLOGIC: Alert and oriented x3. ASSESSMENT: 1. New onset atrial fibrillation with rapid ventricular response. 2. Recurrent stroke. 3. Bubble study was negative. 4. Acute to subacute cerebrovascular accident in the left cerebral hemisphere. 5. History of cerebrovascular accident. 6. Hypertension. 7. Dyslipidemia. 8. Osteoarthritis. 9. Nicotine addiction. 10.Obesity. 11.Blood thinners. Waiting for recommendations. Continue current treatment. PT/OT. Possibly go home with his . Stroke risk factor is reviewed with the patient. Prognosis is guarded. MMODL / IJN: [id number] /
--- NOTE | 2025-03-04 07:57 | P.CNNES ---
History of Present Illness Consult date: 03/03/25 Requesting physician: Torrey Huston Reason for Consult: Subacute/Acute CVA, Recent hemorrhagic infarct History of Present Illness: Patient is a 69-year-old right-handed male came to the hospital by ambulance ye at 11:42 AM for possible TIA. Patient's family members were also present, and they also provided with a history. Patient states that he usually wakes up at 6 AM. Yesterday morning he woke up at 5:30 AM with profuse sweating. He came around the corner of the bed and then everything started spinning and then he apparently passed out and he does not remember how he got down. He was laying on the floor. Family called EMS to get him off the floor. His balance was affected. He did have nausea and vomiting. Patient denies any numbness or tingling or focal weakness, no facial droop or slurred speech. Patient has been having some blurred vision, like "on a cruise ship", which he describes more like vertigo. However he does complain of some blurred vision in the eyes. He couldn't read the bottom on the TV. EMS flowsheet not available in the chart. Vital signs on arrival blood pressure 140/85, pulse rate 111, temperature 97.7. CT head showed acute/subacute CVA involving the left cerebellar hemisphere. Findings new from 01/27/2025. Remote injury to the left parietal temporal region. CTA of the chest showed no evidence of pulmonary embolism. Indeterminate right hepatic lobe arterial phase enhancing 12 mm lesion. Consider further evaluation MRI liver with IV contrast. Hepatic steatosis. Some emphysema. EKG showed atrial fibrillation with aberrant conduction or ventricular premature complexes. At present patient still has slight nausea. Little spinning today but not as bad as yesterday. Patient complaining of back of neck is hurting. Patient has been seen by Dr. Bowman on 01/24/2025 for an acute stroke involving the left parietal region with hemorrhagic transformation on MRI. Repeat CT head prior to discharge was stable with no intraparenchymal hemorrhage but showed possible subarachnoid hemorrhage over the left parietal and the sulci versus cortical laminar necrosis. There is petechial hemorrhage noted. Family mentioned that prior to that admission, patient woke up confused, could not make coffee, could not use the remote control or phone. Prior to that stroke, he has been very healthy and active. Patient still has memory disturbance after his first stroke. He has problems with mathematics, letters and reading. Patient was resumed on aspirin 81 mg daily. Patient was not on any antiplatelet medication prior to that event. A repeat CT head was recommended in 3 weeks as an outpatient to assess if any new bleeding. Patient was on Lipitor [address] Bowman recommended 30-day event monitoring. Patient has history of smoking 1-2 pack per day for 35 years, quit 15 years ago. He drinks alcohol very occasionally. Patient has prediabetes and hypertension. Review of Systems All pertinent positive and negative review of systems mentioned in the HPI, otherwise unremarkable. Past Medical History Past Medical History: Asthma, CVA/TIA, Hyperlipidemia, Hypertension, Osteoarthritis (OA) Additional Past Medical History / Comment(s): 3 herniated discs in lower back. pre-diabetic History of Any Multi-Drug Resistant Organisms: None Reported Past Surgical History: Back Surgery Additional Past Surgical History / Comment(s): Bilateral cataract surgery, vasectomy. Past Anesthesia/Blood Transfusion Reactions: No Reported Reaction Past Psychological History: No Psychological Hx Reported Smoking Status: Former smoker Past Alcohol Use History: Occasional Additional Past Alcohol Use History / Comment(s): Quit smoking 5 yrs ago, smoked for 25 yrs. Past Drug Use History: None Reported - Past Family History Mother Family Medical History: Cancer Additional Family Medical History / Comment(s): Uterine cancer. Father Family Medical History: Cancer Additional Family Medical History / Comment(s): Prostate and colon cancer. Medications and Allergies Home Medications Medication Instructions Recorded Confirmed Type Gabapentin [Neurontin] 100 mg PO BID@0800,1500 01/23/25 03/02/25 History Gabapentin [Neurontin] 300 mg PO HS 01/23/25 03/02/25 History HYDROcodone/APAP 10-325MG [[place] 1 tab PO TID 01/23/25 03/02/25 History 10-325] Sildenafil Citrate [Viagra] 100 mg PO DAILY PRN 01/23/25 03/02/25 History Aspirin 81 mg PO DAILY #90 tab 01/27/25 03/02/25 Rx Atorvastatin [Lipitor] 40 mg PO HS #90 tab 01/27/25 03/02/25 Rx amLODIPine [Norvasc] 5 mg PO DAILY #60 tab 01/27/25 03/02/25 Rx metFORMIN HCL 500 mg PO DAILY #30 tablet 01/27/25 03/02/25 Rx Allergies Allergy/AdvReac Type Severity Reaction Status Date / Time No Known Allergies Allergy Verified 03/02/25 12:16 Physical Examination - Vital Signs Vital Signs: Vital Signs Temp Pulse Pulse Pulse Resp BP BP 03/03/25 12:05 97.4 F L 71 94 17 138/72 03/03/25 08:40 81 118/69 03/03/25 07:59 97.8 F 66 17 132/68 03/03/25 03:53 97.0 F L 79 18 100/63 03/02/25 23:20 97.2 F L 93 18 109/68 03/02/25 20:55 98.0 F 81 18 105/59 03/02/25 16:13 97.8 F 86 16 128/72 03/02/25 15:39 97.6 F 03/02/25 15:30 80 17 98/59 03/02/25 14:30 87 14 98/57 Pulse Ox 03/03/25 12:05 03/03/25 08:40 94 L 03/03/25 07:59 03/03/25 03:53 94 L 03/02/25 23:20 94 L 03/02/25 20:55 96 03/02/25 16:13 96 03/02/25 15:39 03/02/25 15:30 95 03/02/25 14:30 95 Intake and Output 03/02/25 03/03/25 03/03/25 22:59 06:59 14:59 Intake Total 10 20 Balance 10 20 Intake: IV 10 20 Invasive Line 1 10 Invasive Line 2 10 Invasive Line 3 10 Other: Voiding Method Toilet Toilet Urinal Urinal # Voids 1 1 1 # Bowel Movements 1 Weight 102.965 kg Patient is an elderly male, in no acute distress. Patient is alert awake oriented to time place and person. Speech and language functions are normal. Patient can name and repeat very well. No aphasia or dysarthria. Attention, concentration and fund of knowledge is adequate. On cranial nerve examination, pupils are equal, round and reacting to light, visual velez on confrontation revealed right lower quadrant visual field neglect somewhat more peripherally. It was more noticeable when double simultaneous stimulation. Extraocular muscles are intact with no nystagmus. F sheyla is symmetric, tongue protrudes to the midline. Palatal elevation and sensation normal, hearing and shoulder shrug normal, facial sensation normal. On muscle strength testing, there is no pronator drift and the strength is normal in arms and legs distally and proximally. Deep tendon reflexes are symmetric 2 at the biceps, 2 brachioradialis, 2 at the knees, 1 ankles and plantars downgoing on the right, up on the left side. Sensory to touch is equal with no neglect on double simultaneous stimulation. Although sometimes patient seems to neglect the right side but then repeated testing was fine. Cerebellar function showed no ataxia for [id number] testing. No dysdiadochokinesia. No ataxia for [id number] testing on either side. Tone and bulk of muscles normal.and finger tapping are normal. Gait deferred.. On general examination, there is no carotid bruit or murmur, S1-S2 audible. Chest is clear on consultation. Abdomen is soft nontender. No organomegaly, bowel sounds present. Peripheral pulses are present. No peripheral edema. Results - Laboratory Findings CBC and BMP: 03/03/25 06:09 03/03/25 06:09 Abnormal Lab Findings: Abnormal Labs 03/02/25 03/02/25 03/03/25 16:44 17:13 06:09 WBC 11.15 H RBC 4.34 L Hct 39.0 L D-Dimer 1.29 H Sodium Glucose POC Glucose (mg/dL) 190 H 03/03/25 06:09 WBC RBC Hct D-Dimer Sodium 136 L Glucose 149 H POC Glucose (mg/dL) Assessment and Plan Assessment: * Probable acute ischemic stroke left cerebellum. Patient's current NIH stroke scale is 1 related to mild visual neglect on the right lower quadrant, but is probably related to his previous stroke from 01/24/2095. * Recent history of acute CVA left parietal region with hemorrhagic transformation on MRI on 01/24/2025. * Atrial fibrillation with RVR * Hypertension * Prediabetes * X tobacco use Plan: * Patient will undergo repeat CT head in the morning to make sure there is no hemorrhagic conversion. * We'll make decision about clearance for anticoagulation in the morning based upon clinical symptoms and CT report. * In the meantime, we will continue aspirin 81 mg daily. * I discussed with the patient and patient's family in detail about risks and benefits of anticoagulation. They are aware that patient needs anticoagulation to prevent recurrent strokes from atrial fibrillation, however with recent CVA and hemorrhagic transformation, patient is somewhat higher risk for anticoagulation. * CTA head and neck 01/26/2025 showed no evidence of dissection of the cervical internal carotid arteries or vertebral arteries. No evidence of significant stenosis of the carotid bifurcations. No evidence of intracranial high-grade stenosis or intracranial aneurysm. Azygous anterior cerebral artery. * 2-D echo 01/26/2025 revealed LVEF 55-60%. Negative bubble study. Mild TR. Mildly increased left atrial area. * Hemoglobin A1c 6.8 on 01/24/2025 * Lipid panel with cholesterol 209, LDL 129, HDL 54 and triglycerides 125. Continue Lipitor 40 mg daily. * Discussed with cardiology team. * PT and OT. * DVT prophylaxis: Heparin 5000 units subcu every 12 hours. * Neurology will follow. Thank you for the consult. Time with Patient: Greater than 30
--- NOTE | 2025-03-04 09:00 | CT ---
EXAMINATION TYPE: CT brain wo con DATE OF EXAM: 03/04/2025 8:39 AM COMPARISON: 03/02/2025 CLINICAL INDICATION: Male, 69 years old with history of follow up CVA, r/o bleed, prior to anticoag, follow up CVA, r/o bleed, TECHNIQUE: Examination was done in axial plane without intravenous contrast. Coronal and sagittal r econstructions performed. CT DLP: 1170.4 mGycm, Automated exposure control for dose reduction was used. FINDINGS: No acute intracranial hemorrhage. No midline shift or herniation. Old encephalomalacia inferior left cerebellum redemonstrated. However, the greater degree of surround ing hypodensity throughout the medial left cerebellar hemisphere. This results in some asymmetric micro lab analyst wding at the left craniocervical junction but without a kenyetta herniation. Focal hypodensity posterior left parietal lobe as a relatively similar appearance. Additional moderate patchy white matter hypodensities throughout both cerebral hemispheres unchanged. Trace mucosal thickening throughout the maxillary sinuses. Mastoid air cells well pneumatized. Orbits and globes are intact. IMPRESSION: 1. Evolving acute left inferior cerebellar hemisphere infarct. This is a much larger infarct superimp osed on a small area of chronic left PICA infarct/encephalomalacia. 2. This results in asymmetric crowding at the left craniocervical junction but without kenyetta herniati on or midline shift at this time. Close clinical surveillance of the patient's condition advised. 3. No hemorrhagic transformation identified. 4. 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 5. Additional moderate patchy burden of chronic small vessel ischemic disease. [facility], , 03/04/2025 8:58 AM
[2025-03-04] MEDS: IPRATROPIUM-ALBUTEROL 3 ML NEB INHALATION PRN (11:56)
--- NOTE | 2025-03-04 13:42 | PN ---
PROGRESS NOTE A 69-year-old male, who is on DuoNeb, Norvasc for hypertension, gabapentin for neuropathy, [place] for pain, metformin for diabetes, Lopressor for hypertension. White count is 11.10, hemoglobin stable at 13.4. Sodium is 136. Troponins negative. TSH is negative. He had a brain CT yesterday that shows old encephalomalacia, inferior left cerebellum re-demonstrated a greater degree of surrounding hypodensity around the medial left cerebral hemisphere, focal dense hypodensity in the left parietal lobe, sinus issues on the CT scan involving acute left inferior cerebellar hemispheric infarct, much larger infarct superimposed on a small area of chronic left PICA. No kenyetta herniation of the brain. Close surveillance of the patient's condition. Waiting for Neurology's recommendations. Clinically he said playing cards with his last night. Appears not to be showing any signs of a stroke. Temp 97.5, pulse 102, blood pressure is 150/91, saturating 96% on room air. He had 2 L supply last night of oxygen. Blood thinners per Neurology. He was sent in for a stroke last month also. Cardiology wants Neurology to order blood thinners as they seem fit because of the intracranial hemorrhage he had a month ago. Neurology said he has probable acute ischemic stroke, left cerebellum, hemorrhagic transformation on MRI on 01/24/2025, atrial fibrillation, RVR, prediabetes, hypertension. CT scan of the head shows no hemorrhagic conversion and possible anticoagulation. He continues aspirin at this point. Hemoglobin A1c of 6.8. Lipid panel is 209, LDL 129. He is on Lipitor 40. He is on heparin subcu every 12 hours. Waiting on their decision on blood thinners prior to going home. MMODL / IJN: [id number] /
--- NOTE | 2025-03-04 13:54 | P.PN ---
Subjective HISTORY OF PRESENT ILLNESS: This is a 69-year-old male with a past medical history significant for hypertension, hyperlipidemia, osteoarthritis, former nicotine dependence, and obesity. Patient used to follow in the office with Dr. Harrington but has not been seen since 2019. We have been asked to see the patient in consultation for atrial fibrillation. Patient examined at the bedside. Patient presented to the hospital with a chief complaint of feeling unwell. He reports nausea, sweating, lightheadedness, dizziness, and shortness of breath. Patient was found to be in afib with RVR. He was started on IV Cardizem. He remains in atrial fibrillation with controlled ventricular rate. He remains on IV Cardizem at 5mg/hr. He also reports when he turns his head he is having dizziness. DIAGNOSTICS: - EKG reveals atrial fibrillation with RVR - CT of the brain: Acute/subacute CVA involving left cerebellar hemisphere. Remote injury to the left parietal temporal region. -Chest CTA: Negative for pulmonary embolism. Indeterminate right hepatic lobe arterial phase enhancing 12 mm lesion. Consider further evaluation MRI of the liver with IV contrast. - Laboratory data: WBC 11.15. Hemoglobin 13.4. Platelet count 156. D-dimer 1.29. Sodium 136. Potassium 3.8. BUN 20. Creatinine 0.77. - Current home cardiac medications include amlodipine 5 mg daily, Lipitor 40 mg at night, aspirin 81 mg daily - Most recent echocardiogram obtained in January 2025 revealed ejection fraction 55 to 60%, no obvious regional wall motion abnormalities, negative bubble study, mild TR - Cardiac catheterization history: May 2019 which was negative for ischemia - Patient underwent Holter monitor in January 2025 for 14 days revealing sinus mechanism with heart rates ranging between 50-105 bpm. Average 70 bpm. 2 runs of nonsustained VT with longest of 8 beats and 7 runs of nonsustained SVT very brief longest 4 beats. 03/04/2025 Patient examined this morning to bedside. Patient currently denies chest pain or pressure. He denies shortness of breath. He continues to have episodes of dizziness. Telemetry reveals atrial fibrillation with a heart rate in the 90s. PHYSICAL EXAM: VITAL SIGNS: Reviewed. GENERAL: Well-developed in no acute distress. HEENT: Head is normocephalic. Pupils are equal, round. Sclerae anicteric. Mucous membranes of the mouth are moist. Neck supple. No JVD or thyromegaly LUNGS: Respirations even and unlabored. Lungs essentially clear to auscultation bilaterally. HEART: Irregular rate and rhythm. S1 and S2 heard. ABDOMEN: Soft. Nondistended. Nontender. EXTREMITIES: Normal range of motion. No clubbing or cyanosis. Peripheral pulses intact. No lower extremity edema NEUROLOGIC: Awake and alert. Oriented x 3. ASSESSMENT: New onset atrial fibrillation Acute/subacute CVA involving left cerebellar hemisphere History of CVA in January 2025 with possible hemorrhage per CT Hypertension Hyperlipidemia Osteoarthritis Former nicotine dependence Obesity: BMI 34.5 PLAN: No need to repeat echocardiogram as this was performed in January 2025 Continue aspirin, metoprolol, Lipitor, and amlodipine Begin anticoagulation with cleared by neurology. Recommend initiating ADITYA from a cardiology standpoint. If needed, consider SHERRILL to assess for residual thrombus Further recommendations pending patient course Nurse practitioner note has been reviewed by physician. Signing provider agrees with the documented findings, assessment, and plan of care documented by BETTING CLERKS as a scribe. Objective - Vital Signs Vital signs: Vital Signs Temp 98.5 F 03/04/25 11:05 Pulse 89 03/04/25 12:08 Resp 17 03/04/25 11:05 BP 136/87 03/04/25 11:05 Pulse Ox 97 03/04/25 11:05 FiO2 Intake & Output 03/03/25 03/04/25 03/04/25 18:59 06:59 18:59 Intake Total 20 10 Balance 20 10 Weight 102 kg Intake: IV 20 10 Invasive Line 1 10 10 Invasive Line 3 10 Other: Voiding Method Toilet Toilet Urinal # Voids 1 1 - Labs CBC & Chem 7: 03/03/25 06:09 03/03/25 06:09
[2025-03-04] MEDS: CLOPIDOGREL 75 MG TAB PO SCH (17:31)
[2025-03-05 07:13] LABS: ALT 32 U/L (4-49); AST 26 U/L (17-59); African American GFR (CKD) >90 (>60 ml/min/1.73 sqM); Albumin 3.7 g/dL (3.5-5.0); Alkaline Phosphatase 86 U/L (38-126); Anion Gap 7 mmol/L; Blood Urea Nitrogen 20 mg/dL (9-20); Calcium 9.2 mg/dL (8.4-10.2); Carbon Dioxide 28 mmol/L (22-30); Chloride 99 mmol/L (98-107); Glucose 136 mg/dL (74-99); Non-African American GFR(CKD) 89 (>60 ml/min/1.73 sqM); Potassium 4.1 mmol/L (3.5-5.1); Sodium 134 mmol/L (137-145); Total Bilirubin 1.2 mg/dL (0.2-1.3); Total Protein 6.3 g/dL (6.3-8.2)
[2025-03-05 07:26] LABS: Basophils # (A) 0.07 10*3/uL (0.00-0.10); Basophils % (A) 0.8 %; Eosinophils # (A) 0.09 10*3/uL (0.04-0.35); HCT 42.8 % (39.6-50.0); Lymphocytes # (A) 2.14 10*3/uL (0.90-5.00); Lymphocytes % (A) 23.4 %; MCH 31.1 pg (27.0-32.0); MCV 88.6 fL (80.0-97.0); Mean Platelet Volume 12.1 fL (9.5-12.2); Monocytes % (A) 9.9 %; Neutrophils % (A) 64.6 %; Platelet Count 155 10*3/uL (140-440); RBC 4.83 10*6/uL (4.40-5.60); RDW 12.5 % (11.5-14.5); WBC 9.13 10*3/uL (4.50-10.00)
[2025-03-05] MEDS ORDERED: MIDAZOLAM 2 MG/2 ML VIAL IV PRN (07:34)
[2025-03-05] MEDS ORDERED: fentaNYL (PF) 50 MCG/ML 5 ML AMP IVP PRN (07:34)
--- NOTE | 2025-03-05 08:23 | P.PN ---
Subjective Progress Note Date: 03/04/25 Patient was seen for follow-up. Patient denies any headache or dizziness. No new concerns. Patient's was also present by the bedside. Objective - Vital Signs Vital signs: Vital Signs Temp 98.5 F 03/04/25 11:05 Pulse 89 03/04/25 12:08 Resp 17 03/04/25 11:05 BP 136/87 03/04/25 11:05 Pulse Ox 97 03/04/25 11:05 FiO2 Intake & Output 03/03/25 03/04/25 03/04/25 18:59 06:59 18:59 Intake Total 20 10 240 Balance 20 10 240 Weight 102 kg Intake: IV 20 10 Invasive Line 1 10 10 Invasive Line 3 10 Oral 240 Other: Voiding Method Toilet Toilet Urinal # Voids 1 1 2 - Exam Patient's mental status, speech and language functions are normal. Patient's cranial nerves are normal. Muscle strength is normal. No ataxia for smncqr-bp-ozra or snes-qs-dfrj testing. No dysdiadochokinesia. Tone and bulk of muscles normal. - Labs CBC & Chem 7: 03/05/25 07:01 03/05/25 06:06 Assessment and Plan Assessment: * Acute ischemic stroke left cerebellum. Patient's current NIH stroke scale is 1 related to mild visual neglect on the right lower quadrant, but is probably related to his previous stroke from 01/24/2095. * Recent history of acute CVA left parietal region with hemorrhagic transformation on MRI on 01/24/2025. * Atrial fibrillation with RVR * Hypertension * Prediabetes * X tobacco use Plan: * Repeat CT head performed today revealed evolving acute left inferior cerebellar hemispheric infarct. This is much larger infarct superimposed on a small area of chronic left PICA infarct/encephalomalacia. This results in asymmetric crowding at the left craniocervical junction but without kenyetta herniation or midline shift at this time. Close surveillance of the patient's condition advice. No hemorrhagic transformation. Hypodensity posterior left parietal lobe appears relatively similar and could be subacute to chronic. Additional moderate patchy burden of chronic small vessel ischemic disease. I personally reviewed CT head, agree with the findings. * Based upon CT findings, I discussed case with Dr. Arreguin, neuro intervention about the CT results. He does not believe patient needs to be transferred. He recommended holding off anticoagulation for 5 days post CVA. Then the benefits of anticoagulation will outweigh the risk of hemorrhage. This is because patient has multiple embolic strokes. * We will start anticoagulation from 03/07/2025. We will check CT head prior to starting anticoagulation. * At this point, we will add Plavix to the aspirin. * I discussed with the patient and patient's family in detail about risks and benefits of anticoagulation. They are aware that patient needs anticoagulation to prevent recurrent strokes from atrial fibrillation, however with recent CVA and hemorrhagic transformation, patient is somewhat higher risk for anticoagulation. * CTA head and neck 01/26/2025 showed no evidence of dissection of the cervical internal carotid arteries or vertebral arteries. No evidence of significant stenosis of the carotid bifurcations. No evidence of intracranial high-grade stenosis or intracranial aneurysm. Azygous anterior cerebral artery. * 2-D echo 01/26/2025 revealed LVEF 55-60%. Negative bubble study. Mild TR. Mildly increased left atrial area. * Hemoglobin A1c 6.8 on 01/24/2025 * Lipid panel with cholesterol 209, LDL 129, HDL 54 and triglycerides 125. Continue Lipitor 40 mg daily. * Discussed with cardiology team. * PT and OT. * DVT prophylaxis: Heparin 5000 units subcu every 12 hours.
[2025-03-05] MEDS: BENZOCAINE SPRAY 1 EACH MM ONE (09:54)
[2025-03-05] MEDS: MIDAZOLAM 2 MG/2 ML VIAL IVP ONE ×2 (09:55→09:58)
[2025-03-05] MEDS: fentaNYL (PF) 50 MCG/ML 2 ML AMP IVP ONE ×2 (09:55→09:58)
--- NOTE | 2025-03-05 10:11 | P.TEE ---
Description of Procedure(s): Procedure performed: Transesophageal Echocardiogram with color flow doppler, pulsed wave doppler and continuous wave doppler, moderate conscious sedation Moderate conscious sedation: Moderate conscious sedation was supplied with direct supervision of myself using Versed and Fentanyl. Complications: none Indications: CVA PROCEDURE: After the risks, benefits and alternatives of the above mentioned procedure was explained in detail with the patient, informed consent was obtained. Patient was brought to the lab in a fasting state. Patient was given IV Versed and Fentanyl for sedation. The throat was sprayed with Hurricane to anesthetize the throat. A lubricated Omni probe was then introduced into the esophagus and stomach and multiple views were obtained. 2D echo with color flow doppler, pulsed wave doppler and continuous wave doppler was utilized. Agitated saline bubbles were injected to assess for any intra-atrial shunt. The probe was then removed. Patient tolerated the procedure well. Patient was transferred to the post procedure area in stable and satisfactory condition. FINDINGS: 1. The aortic valve is calcified with normal function with trace aortic regurgitation. 2. The mitral valve appears be normal with mild mitral regurgitation. 3. Tricuspid valve appears to be normal. 4. There is a small PFO. 5. Left atrial appendage is free of clot. 6. Left ventricular ejection fraction 45 to 50%
[2025-03-05] MEDS: SODIUM CHLORIDE 0.9% 1,000 ML IV ONE (10:26)
--- NOTE | 2025-03-05 23:09 | P.PN ---
Subjective Progress Note Date: 03/05/25 Patient is a 69-year-old male with a past medical history of recent CVA, hypertension, hyperlipidemia, osteoarthritis, prior history of smoking was admitted to hospital due to complaints of shortness of breath, dizziness and lightheadedness and not feeling well. Patient was found to have new onset atrial fibrillation. CT head repeat showed evolving acute left cerebellar hemisphere infarct. This is much large infarct superimposed on a small area of chronic left PICA infarct/encephalomalacia. This results in asymmetric crowding of the left craniocervical junction but without kenyetta herniation or midline shift at this time. No hemorrhagic transformation identified. 03/05/2025 Patient is resting in the bed. Awake alert and oriented. Patient states that he has memory issues due to patient history of stroke. No complaints of chest pain or shortness of breath. Still complains of dizziness especially when he gets out of the bed. No cough or sputum production. Patient has been afebrile. Laboratory data showed WBC 9.1 hemoglobin 13.0 and platelets 155 sodium 134 potassium 4.1 chloride 99 bicarb is 28 BUN 20 and creatinine 0.88 and blood sugar is 136. Patient underwent SHERRILL/cardioversion today. Current medications reviewed. Objective - Vital Signs Vital signs: Vital Signs Temp 98.3 F 03/05/25 08:30 Pulse 80 03/05/25 08:30 Resp 14 03/05/25 08:30 BP 146/87 03/05/25 08:30 Pulse Ox 92 L 03/05/25 08:30 FiO2 Intake & Output 03/04/25 03/05/25 03/05/25 18:59 06:59 18:59 Intake Total 240 10 Balance 240 10 Weight 101 kg Intake: IV 10 Invasive Line 3 10 Oral 240 Other: Voiding Method Toilet # Voids 2 - Exam PHYSICAL EXAMINATION: Patient is lying in the bed comfortably, no acute distress, awake alert and oriented.. HEENT: Normocephalic. Neck is supple. Pupils reactive. Nostrils clear. Oral cavity is moist. Neck reveals no JVD, carotid bruits, or thyromegaly. CHEST EXAMINATION: Trachea is central. Symmetrical expansion. Lung velez clear to auscultation and percussion. CARDIAC: Normal S1, S2 with no gallops. No murmurs ABDOMEN: Soft. Bowel sounds normal. No organomegaly. No abdominal bruits. Extremities: reveal no edema. No clubbing or cyanosis Neurologically awake, alert, oriented x 2-3. Slow to respond. Able to move all extremities. Skin: No rash or skin lesions. Psychiatric: Coperative. Nonsuicidal Musculoskeletal: No joint swelling or deformity. Normal range of motion. - Labs CBC & Chem 7: 03/05/25 07:01 03/05/25 06:06 Labs: Abnormal Lab Results - Last 24 Hours (Table) 03/05/25 Range/Units 06:06 Sodium 134 L (137-145) mmol/L Glucose 136 H (74-99) mg/dL Assessment and Plan Assessment: New onset atrial fibrillation. Patient is status post SHERRILL/cardioversion Acute CVA left cerebellar hemisphere infarct History of CVA in January 2025 with possible hemorrhage. Hypertension Diabetes type 2. Zgx-sattiyz-viexrpupr. A1c 6.8 Hyperlipidemia Osteoarthritis Prior history of smoking Plan: Patient will be continued on telemonitoring. Continue with aspirin, Lipitor, metoprolol and is also on amlodipine. Patient is status post SHERRILL/cardioversion on 03/05/2025. Anticoagulation once cleared by neurology. Patient was started on Plavix. Continue to follow closely. Prognosis guarded. Time with Patient: Greater than 30
--- NOTE | 2025-03-06 09:35 | P.PN ---
Subjective Progress Note Date: 03/05/25 Patient was seen for follow-up. Patient denies any headache or dizziness. No new concerns. Objective - Vital Signs Vital signs: Vital Signs Temp 98.4 F 03/05/25 11:51 Pulse 94 03/05/25 11:51 Resp 14 03/05/25 11:51 BP 154/98 03/05/25 11:51 Pulse Ox 95 03/05/25 11:51 FiO2 Intake & Output 03/04/25 03/05/25 03/05/25 18:59 06:59 18:59 Intake Total 240 330 Balance 240 330 Weight 101 kg 101 kg Intake: IV 210 Invasive Line 3 10 Oral 240 120 Other: Voiding Method Toilet # Voids 2 - Exam Patient's mental status, speech and language functions are normal. Patient's cranial nerves are normal. Muscle strength is normal. No ataxia for aaeddy-ft-wvmk or elgk-gb-brse testing. No dysdiadochokinesia. Tone and bulk of muscles normal. - Labs CBC & Chem 7: 03/05/25 07:01 03/05/25 06:06 Labs: Abnormal Lab Results - Last 24 Hours (Table) 03/05/25 Range/Units 06:06 Sodium 134 L (137-145) mmol/L Glucose 136 H (74-99) mg/dL Assessment and Plan Assessment: * Acute ischemic stroke left cerebellum. Patient's current NIH stroke scale is 1 related to mild visual neglect on the right lower quadrant, but is probably related to his previous stroke from 01/24/2095. * Recent history of acute CVA left parietal region with hemorrhagic transformation on MRI on 01/24/2025. The hemorrhagic transformation has resolved. * Atrial fibrillation with RVR * Hypertension * Prediabetes * X tobacco use Plan: * Repeat CT head 03/04/2025 revealed evolving acute left inferior cerebellar hemispheric infarct. This is much larger infarct superimposed on a small area of chronic left PICA infarct/encephalomalacia. This results in asymmetric crowding at the left craniocervical junction but without kenyetta herniation or midline shift at this time. Close surveillance of the patient's condition advice. No hemorrhagic transformation. Hypodensity posterior left parietal lobe appears relatively similar and could be subacute to chronic. Additional moderate patchy burden of chronic small vessel ischemic disease. I personally reviewed CT head, agree with the findings. * Based upon CT findings, I discussed case with Dr. Arreguin, neuro intervention about the CT results. He does not believe patient needs to be transferred. He recommended holding off anticoagulation for 5 days post CVA. Then the benefits of anticoagulation will outweigh the risk of hemorrhage. This is because patient has multiple embolic strokes. * We will start anticoagulation from 03/07/2025. We will check CT head prior to starting anticoagulation. * At this point, we will add Plavix to the aspirin. * Patient underwent SHERRILL today, which revealed aortic valve this calcified with normal function and trace aortic regurgitation. Mitral valve appears to be normal with mild MR. Small PFO. Left atrial appendage is free of clot. LVEF 45-50%. * I discussed with the patient and patient's family in detail about risks and benefits of anticoagulation. They are aware that patient needs anticoagulation to prevent recurrent strokes from atrial fibrillation, however with recent CVA and hemorrhagic transformation, patient is somewhat higher risk for anticoagulation. * CTA head and neck 01/26/2025 showed no evidence of dissection of the cervical internal carotid arteries or vertebral arteries. No evidence of significant stenosis of the carotid bifurcations. No evidence of intracranial high-grade stenosis or intracranial aneurysm. Azygous anterior cerebral artery. * 2-D echo 01/26/2025 revealed LVEF 55-60%. Negative bubble study. Mild TR. Mildly increased left atrial area. * Hemoglobin A1c 6.8 on 01/24/2025 * Lipid panel with cholesterol 209, LDL 129, HDL 54 and triglycerides 125. Continue Lipitor 40 mg daily. * Discussed with cardiology team. * PT and OT. * DVT prophylaxis: Heparin 5000 units subcu every 12 hours.
[2025-03-06] MEDS: HEPARIN SODIUM,PORCINE 5,000 UNIT/ML 1 ML VIAL SQ SCH (10:30)
--- NOTE | 2025-03-06 12:57 | P.PN ---
Subjective HISTORY OF PRESENT ILLNESS: This is a 69-year-old male with a past medical history significant for hypertension, hyperlipidemia, osteoarthritis, former nicotine dependence, and obesity. Patient used to follow in the office with Dr. Harrington but has not been seen since 2019. We have been asked to see the patient in consultation for atrial fibrillation. Patient examined at the bedside. Patient presented to the hospital with a chief complaint of feeling unwell. He reports nausea, sweating, lightheadedness, dizziness, and shortness of breath. Patient was found to be in afib with RVR. He was started on IV Cardizem. He remains in atrial fibrillation with controlled ventricular rate. He remains on IV Cardizem at 5mg/hr. He also reports when he turns his head he is having dizziness. DIAGNOSTICS: - EKG reveals atrial fibrillation with RVR - CT of the brain: Acute/subacute CVA involving left cerebellar hemisphere. Remote injury to the left parietal temporal region. -Chest CTA: Negative for pulmonary embolism. Indeterminate right hepatic lobe arterial phase enhancing 12 mm lesion. Consider further evaluation MRI of the liver with IV contrast. - Laboratory data: WBC 11.15. Hemoglobin 13.4. Platelet count 156. D-dimer 1.29. Sodium 136. Potassium 3.8. BUN 20. Creatinine 0.77. - Current home cardiac medications include amlodipine 5 mg daily, Lipitor 40 mg at night, aspirin 81 mg daily - Most recent echocardiogram obtained in January 2025 revealed ejection fraction 55 to 60%, no obvious regional wall motion abnormalities, negative bubble study, mild TR - Cardiac catheterization history: May 2019 which was negative for ischemia - Patient underwent Holter monitor in January 2025 for 14 days revealing sinus mechanism with heart rates ranging between 50-105 bpm. Average 70 bpm. 2 runs of nonsustained VT with longest of 8 beats and 7 runs of nonsustained SVT very brief longest 4 beats. 03/04/2025 Patient examined this morning to bedside. Patient currently denies chest pain or pressure. He denies shortness of breath. He continues to have episodes of dizziness. Telemetry reveals atrial fibrillation with a heart rate in the 90s. 03/06 Patient seen and examined. Patient denies any chest pain or pressure. Dizziness has been improving. Blood pressure stable. Remains in A-fib with heart rates in the 80s to 90s. He underwent SHERRILL yesterday which showed a small PFO and no left atrial appendage thrombus. PHYSICAL EXAM: VITAL SIGNS: Reviewed. GENERAL: Well-developed in no acute distress. HEENT: Head is normocephalic. Pupils are equal, round. Sclerae anicteric. Mucous membranes of the mouth are moist. Neck supple. No JVD or thyromegaly LUNGS: Respirations even and unlabored. Lungs essentially clear to auscultation bilaterally. HEART: Irregular rate and rhythm. S1 and S2 heard. ABDOMEN: Soft. Nondistended. Nontender. EXTREMITIES: Normal range of motion. No clubbing or cyanosis. Peripheral pulses intact. No lower extremity edema NEUROLOGIC: Awake and alert. Oriented x 3. ASSESSMENT: New onset atrial fibrillation Acute/subacute CVA involving left cerebellar hemisphere History of CVA in January 2025 with possible hemorrhage per CT Hypertension Hyperlipidemia Osteoarthritis Former nicotine dependence Obesity: BMI 34.5 Small PFO PLAN: SHERRILL not showing any residual thrombus and most likely cause of his stroke was from the atrial fibrillation. Small PFO likely not a cause and therefore do not recommend closing. Start anticoagulation when cleared by neurology. No further recommendations from a cardiology standpoint. Please call with questions. Objective - Vital Signs Vital signs: Vital Signs Temp 97.7 F 03/06/25 11:44 Pulse 92 03/06/25 11:44 Resp 14 03/06/25 11:44 BP 122/74 03/06/25 11:44 Pulse Ox 96 03/06/25 11:44 FiO2 Intake & Output 03/05/25 03/06/25 03/06/25 18:59 06:59 18:59 Intake Total 460 1100 120 Balance 460 1100 120 Weight 101 kg 101.2 kg Intake: IV 220 20 Invasive Line 3 20 20 Oral 240 1080 120 Other: Voiding Method Toilet # Voids 3 3 - Labs CBC & Chem 7: 03/05/25 07:01 03/05/25 06:06
--- NOTE | 2025-03-06 14:53 | CDI ---
Documentation Clarification Form Date: 03/06/2025 02:24:42 PM From: Tracy Tinoco RN, CCDS Phone: [phone] Admit Date: 03/02/2025 01:29:00 PM Patient Name: Pankaj Richardson Visit Number: [id number] Discharge Date: ATTENTION: The Clinical Documentation Specialists (CDI) and [facility] Coding Staff appreciate your assistance in clarifying documentation. Please respond to the clarification below the line at the bottom and electronically sign. The CDI & [facility] Coding staff will review the response and follow-up if needed. Please note: Queries are made part of the Legal Health Record. If you have any questions, please contact the author of this message via ITS. DoctorJordon Bundy 03/03 new onset Atrial Fibrillation is documented in the cardiology consult and subsequent progress notes. Additional clarification regarding the type of atrial fibrillation is requested. History/Risk Factors: Asthma, Hypertension, Hyperlipidemia, CVA Clinical Indicators: 69-year-old male present with nausea, sweating, lightheadedness, dizziness and shortness of breath. He was found to be in AFIB with RVR. EKG/telemetry: atrial fibrillation with RVR ECHO: (02/2025) Ejection fraction 55-60% no obvious regional wall motion abnormalities, negative bubble study, mild TR (per cardiology progress note) Cardiology notes: 03/04 Telemetry: atrial fibrillation with a heart rate in the 90s. Cardiology notes: 03/06 Remains in A-fib heart rate in the 80s to 90s. He underwent TTE yesterday which showed a small PFO and no left atrial appendage thrombus. New onset atrial fibrillation Treatment: Cardiac Monitoring / Telemetry Plavix 75 MG PO Daily, ASA 81 MG PO Daily, 03/04-03/06 Cardizem IV Per orders 03/02-03/02 Lopressor 25 MG PO BID 03/03-03/06, Norvasc 5 MG PO Daily Please clarify the type of atrial fibrillation, if known: [ ] Chronic [ ] Permanent [ X ] Paroxysmal [ ] Persistent [ ] Other, please specify [ ] Unable to determine (Template Last Revised: March 2021) MTDD
--- NOTE | 2025-03-06 18:00 | CT ---
EXAMINATION TYPE: CT brain wo con DATE OF EXAM: 03/06/2025 COMPARISON: 03/04/2025 CLINICAL INDICATION: Male, 69 years old with history of Follow up CVA; [facility], Follow up CVA. TECHNIQUE: CT scan of the head is performed without contrast. CT DLP: 1170.[address] CTDI: mGy Automated exposure control for dose reduction was used. FINDINGS: Again noted is evolution of the left inferior cerebellar infarct. Mild mass effect on the a djacent fourth ventricle without evidence of midline shift or kenyetta herniation. No hemorrhagic transf ormation is seen. Remote insult posterior left parietal lobe. There is diffuse ventricular and sulcal prominence consistent with diffuse age-related cerebral atrophy. There is low-attenuation in the pe riventricular white matter consistent with chronic small vessel ischemic change. The globes are inta ct and the visualized sinuses are clear. IMPRESSION: 1. Evolution of left inferior cerebellar infarct without hemorrhagic transformation or midline shift. 2. Nonacute insult posterior left parietal lobe. [facility], , 03/06/2025 5:58 PM
--- NOTE | 2025-03-07 07:22 | P.PN ---
Subjective Progress Note Date: 03/06/25 Patient was seen for follow-up. Patient denies any headache. Patient's was also present by the bedside. She mentions that patient still has dizziness when he is up walking around. He has no nausea. He states his confusion with beldax-lh-tflh testing. No new concerns. Objective - Vital Signs Vital signs: Vital Signs Temp 98.2 F 03/07/25 04:42 Pulse 89 03/07/25 04:42 Resp 16 03/07/25 04:42 BP 104/63 03/07/25 04:42 Pulse Ox 96 03/07/25 04:42 FiO2 Intake & Output 03/06/25 03/07/25 03/07/25 18:59 06:59 18:59 Intake Total 360 120 Balance 360 120 Weight 101 kg Intake: Oral 360 120 Other: Voiding Method Toilet Toilet # Voids 2 1 - Exam Patient's mental status, speech and language functions are normal. Patient's cranial nerves are normal. Muscle strength is normal. No ataxia for tcnpdz-ej-cgzn or ieos-bt-tmra testing. However patient has significant confusion for following directions like [id number]-[id number]. He would touch examiner's finger than his own finger of other hand, or he would try to touch examiner's nose, or not following directions. Required multiple prompts to do the task. This has been present all the way through since I started seeing him. No dysdiadochokinesia. Tone and bulk of muscles normal. - Labs CBC & Chem 7: 03/05/25 07:01 03/05/25 06:06 Assessment and Plan Assessment: * Acute ischemic stroke involving left medial half of the left cerebellar hemisphere. Patient's current NIH stroke scale is 1 related to mild visual neglect on the right lower quadrant, but is probably related to his previous stroke from 01/24/2095. 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 The hemorrhagic transformation has resolved. * Atrial fibrillation with RVR * Hypertension * Prediabetes * X tobacco use Plan: * Repeat CT head performed today revealed evolution of left inferior cerebellar infarct without hemorrhagic transformation or midline shift. Nonacute insert posterior left parietal lobe. I personally reviewed CT head, agree with the findings. * We will stop Plavix (last dose received today) and also stop aspirin. We will also stop heparin subcu and start Eliquis 5 mg twice a day from the morning. * Based upon CT findings, I discussed case with Dr. Arreguin, neuro intervention about the CT results. He does not believe patient needs to be transferred. He recommended holding off anticoagulation for 5 days post CVA. Then the benefits of anticoagulation will outweigh the risk of hemorrhage. This is because patient has multiple embolic strokes. * We will start anticoagulation from 03/07/2025. * Patient underwent SHERRILL today, which revealed aortic valve this calcified with normal function and trace aortic regurgitation. Mitral valve appears to be normal with mild MR. Small PFO. Left atrial appendage is free of clot. LVEF 45-50%. * I discussed with the patient and patient's family in detail about risks and benefits of anticoagulation. They are aware that patient needs anticoagulation to prevent recurrent strokes from atrial fibrillation, however with recent CVA and hemorrhagic transformation, patient is somewhat higher risk for anticoagulation. * CTA head and neck 01/26/2025 showed no evidence of dissection of the cervical internal carotid arteries or vertebral arteries. No evidence of significant stenosis of the carotid bifurcations. No evidence of intracranial high-grade stenosis or intracranial aneurysm. Azygous anterior cerebral artery. * 2-D echo 01/26/2025 revealed LVEF 55-60%. Negative bubble study. Mild TR. Mildly increased left atrial area. * Hemoglobin A1c 6.8 on 01/24/2025 * Lipid panel with cholesterol 209, LDL 129, HDL 54 and triglycerides 125. Continue Lipitor 40 mg daily. * Discussed with cardiology team. * PT and OT. * DVT prophylaxis: Starting Eliquis 5 mg twice a day.
[2025-03-07 08:07] VITALS: RESP 14
[2025-03-07] MEDS: APIXABAN 5 MG TAB PO SCH (08:12)
[2025-03-07 11:53] LABS: Glucose,Whole Blood 171 mg/dL (70-110)
[2025-03-07 15:39] VITALS: BP 123/81; PULSE 86; TEMP 98.3
[2025-03-07 16:46] LABS: Glucose,Whole Blood 124 mg/dL (70-110)
--- NOTE | 2025-03-08 08:09 | P.PN ---
Subjective Progress Note Date: 03/07/25 Patient was seen for follow-up. Patient denies any headache. Patient's was also present by the bedside. She mentions that patient still has dizziness when he is up walking around. Patient denies any new neuro symptoms. He wants to go home. Objective - Vital Signs Vital signs: Vital Signs Temp 98.3 F 03/07/25 15:37 Pulse 86 03/07/25 15:37 Resp 14 03/07/25 15:37 BP 123/81 03/07/25 15:37 Pulse Ox 96 03/07/25 15:37 FiO2 Intake & Output 03/06/25 03/07/25 03/07/25 18:59 06:59 18:59 Intake Total 360 120 270 Balance 360 120 270 Weight 101 kg Intake: Oral 360 120 270 Other: Voiding Method Toilet Toilet Toilet # Voids 2 1 1 - Exam Patient's mental status, speech and language functions are normal. Patient's cranial nerves are normal. Muscle strength is normal. No ataxia for hobxvi-zt-aobo or alrk-ks-kljf testing. However patient has significant confusion for following directions like [id number]-oy-[id number]. He would touch exa methods examiner's finger than his own finger of other hand, or he would try to touch examiner's nose, or not following directions. Required multiple prompts to do the task. This has been present all the way through since I started seeing him. No dysdiadochokinesia. Tone and bulk of muscles normal. - Labs CBC & Chem 7: 03/05/25 07:01 03/05/25 06:06 Labs: Abnormal Lab Results - Last 24 Hours (Table) 03/07/25 Range/Units 11:51 POC Glucose (mg/dL) 171 H (70-110) mg/dL Assessment and Plan Assessment: * Acute ischemic stroke involving left medial half of the left cerebellar hemisphere. Patient's current NIH stroke scale is 1 related to mild visual neglect on the right lower quadrant, but is probably related to his previous stroke from 01/24/2095. * Recent history of acute CVA left parietal region with hemorrhagic transformation on MRI on 01/24/2025. The hemorrhagic transformation has resolved. * Atrial fibrillation with RVR * Hypertension * Prediabetes * X tobacco use Plan: * Repeat CT head performed 03/06/2025 revealed evolution of left inferior cerebellar infarct without hemorrhagic transformation or midline shift. Nonacute insert posterior left parietal lobe. I personally reviewed CT head, agree with the findings. * Patient is off Plavix and aspirin. Patient has received Eliquis this morning, tolerating it well. * Based upon CT findings, I discussed case with Dr. Arreguin, neuro intervention about the CT results. He does not believe patient needs to be transferred. He recommended holding off anticoagulation for 5 days post CVA. Then the benefits of anticoagulation will outweigh the risk of hemorrhage. This is because patient has multiple embolic strokes. * Patient underwent SHERRILL 03/05/2035, which revealed aortic valve this calcified with normal function and trace aortic regurgitation. Mitral valve appears to be normal with mild MR. Small PFO. Left atrial appendage is free of clot. L VEF 45-50%. * I discussed with the patient and patient's family in detail about risks and benefits of anticoagulation. They are aware that patient needs anticoagulation to prevent recurrent strokes from atrial fibrillation, however with recent CVA and hemorrhagic transformation, patient is somewhat higher risk for anticoagulation. * CTA head and neck 01/26/2025 showed no evidence of dissection of the cervical internal carotid arteries or vertebral arteries. No evidence of significant stenosis of the carotid bifurcations. No evidence of intracranial high-grade stenosis or intracranial aneurysm. Azygous anterior cerebral artery. * 2-D echo 01/26/2025 revealed LVEF 55-60%. Negative bubble study. Mild TR. Mildly increased left atrial area. * Hemoglobin A1c 6.8 on 01/24/2025 * Lipid panel with cholesterol 209, LDL 129, HDL 54 and triglycerides 125. Continue Lipitor 40 mg daily. * Discussed with cardiology team. * PT and OT. * DVT prophylaxis: Starting Eliquis 5 mg twice a day. * Neurologically clear for discharge. * Patient does have neurologist outpatient and will follow-up with him. They will make an appointment.
== END 2025-03-07 17:54 | disposition home health service (06) | DRG 308 ==
LOC: EC 11:42 → 3SCARD 13:29 → 3NCARDOBS 03-06 22:33 → 3SCARD 03-06 22:37
PROVIDERS: ADMIT Family Medicine; ATTEND Family Medicine
PROC: 3E033RZ Introduction of Antiarrhythmic into Peripheral Vein, Percutaneous Approach (ICD-10-PCS; principal; 2025-03-02)
PROC: B246ZZ4 Ultrasonography of Right and Left Heart, Transesophageal (ICD-10-PCS; 2025-03-05)
DX: I48.0 Paroxysmal atrial fibrillation (principal); I63.542 Cerebral infarction due to unspecified occlusion or stenosis of left cerebellar artery; E11.40 Type 2 diabetes mellitus with diabetic neuropathy, unspecified; J43.9 Emphysema, unspecified; G93.89 Other specified disorders of brain; E66.9 Obesity, unspecified; I10 Essential (primary) hypertension; K76.0 Fatty (change of) liver, not elsewhere classified; Q21.12 Patent foramen ovale; I69.311 Memory deficit following cerebral infarction; J45.909 Unspecified asthma, uncomplicated; Z68.34 Body mass index [BMI] 34.0-34.9, adult; H53.8 Other visual disturbances; E78.5 Hyperlipidemia, unspecified; R29.701 NIHSS score 1; G89.29 Other chronic pain; M54.2 Cervicalgia; M54.50 Low back pain, unspecified; Z79.82 Long term (current) use of aspirin; Z79.84 Long term (current) use of oral hypoglycemic drugs; Z79.899 Other long term (current) drug therapy; Z87.891 Personal history of nicotine dependence
CPT/HCPCS: 70450; 71275; 80048; 80053; 84443; 84484; 85025; 85027; 85379; 87636; 93312; 93320; 93325; 94640; 96365; 96366; 99291